=== PATIENT | male | born 1990 | race Caucasian/White ===

== ENCOUNTER 2024-06-06 18:30 | Inpatient (IN) | payer OTHER, SELFPAY ==
[2024-06-06 18:32] VITALS: BP 134/87; PULSE 109; RESP 20; TEMP 36.8; O2SAT 97; BMI 29.4
--- NOTE | 2024-06-06 20:00 | EDS_ITS ---
HPI History of Present Illness Chief Complaint: General Illness Detail of Chief Complaint: Fever, headache, jaundice Informant: patient Onset/Context/Timing Onset: Weeks Context: Gradual Onset Timing: Continuous Quality: Sharp Location: Occiput Worsened by: Nothing Relieved by: Nothing Narrative Narrative: Patient presents with fever, headache, and jaundice that has been getting worse over the past couple weeks. Patient states that over the last month he had a workup of his gout. Patient states that he has been taking Tylenol for this. Patient states he was taking up to 12 extra strength Tylenol tablets in a 24- hour period a few weeks ago. Patient states that he was started on prednisone for his gout and cut back on using the Tylenol. Patient states his last dose of Tylenol was yesterday morning. Patient's family member noticed that his skin was yellow today. Patient states he has not noticed any changes in his skin color. Patient states his temperature was up to 101.5 at home. Patient admits to a mild sore throat. Patient states he has pain over his occiput and upper neck. Patient describes it as sharp. Patient states nothing makes it worse and nothing makes it better. Patient denies any abdominal pain. Patient denies any nausea or vomiting. [facility] Medical History Gout Home Medications ?Medication ?Instructions ?Recorded ?Last Taken ?Type NK 06/06/24 Unknown History Allergy/AdvReac Type Severity Reaction Status Date / Time No Known Allergies Allergy Verified 06/06/24 18:31 Surgical History History of ankle surgery Social History Smoking Status: Current some day smoker tobacco type: cigarettes ROS ROS ED Constitutional Constitutional ED: Reports fever(s); Denies chills Eyes Eyes: Denies blurry vision or change in vision ENT ENT ED: Reports sore throat; Denies rhinorrhea Cardiovascular Cardiovascular: Denies chest pain or palpitations Respiratory/Chest Respiratory/Chest: Reports cough; Denies dyspnea Gastrointestinal Gastrointestinal: Denies nausea or vomiting Genitourinary Genitourinary ED: Denies dysuria or hematuria Musculoskeletal Musculoskeletal: Reports neck pain; Denies back pain Integumentary Reports rash; Denies abscess Neurologic Neurologic: Reports headache(s); Denies weakness Allergic/Immunologic Allergic/Immunologic ED: Denies mouth swelling or urticaria EXAM Physical Exam Const Vital Signs: 06/06/24 18:32 06/06/24 21:03 06/06/24 21:03 Temperature 98.2 F Temperature Source Oral Pulse Rate 109 H 102 H Respiratory Rate 20 H 18 Respiratory Effort Normal Respiratory Pattern Normal Blood Pressure 134/87 H 129/80 H Blood Pressure Mean 102 96 Pulse Ox 97 95 Oxygen Delivery Method Room Air Room Air 06/06/24 23:00 Temperature Temperature Source Pulse Rate 99 Respiratory Rate 17 Respiratory Effort Respiratory Pattern Blood Pressure 120/80 Blood Pressure Mean 93 Pulse Ox 99 Oxygen Delivery Method Room Air Positive well nourished and well developed General Appearance ED: well developed and NAD HEENT Reports moist mucous membranes Eyes PERRL and EOMs intact bilaterally General Eye ED: Yes scleral icterus Neck supple and no JVD Resp normal respiratory effort and clear to auscultation bilaterally Cardio regular rhythm Rate: tachycardic GI non-tender and non-distended GI Narrative: There is hepatomegaly noted. The liver margin was approximately 2 fingers below the costal margin. Palpation: soft Neuro oriented x3, CN's II-XII intact bilaterally and no sensory deficits noted Sensorium / Orientation: alert Motor Exam: strength 5/5 throughout Psych mental status grossly normal Skin General Skin Exam: jaundice MDM MDM MDM Narrative Medical decision making narrative: Differential diagnosis includes jaundice, hepatic failure, acetaminophen toxicity, electrolyte abnormality, liver mass, peptic ulcer disease, cirrhosis, coagulopathy, urinary tract infection, and viral illness. CBC will be obtained to assess for leukocytosis and anemia. Comprehensive metabolic profile will be obtained to assess for hepatic function, renal function, and electrolyte abnormality. Lipase will be obtained to assess for pancreatitis. PT with INR and PTT will be obtained to assess for coagulopathy. Acetaminophen level will be obtained to assess for acetaminophen toxicity. Serum lactate will be obtained to assess for sepsis. Urinalysis will be obtained to assess for urinary tract infection and hematuria. COVID-19, influenza, and RSV PCR will be obtained to assess for viral illness. CT scan of the abdomen and pelvis will be obtained to assess for liver mass, cirrhosis, cholecystitis, cholelithiasis, and bowel obstruction. Lab Data Attestation: I reviewed the patient's lab results. Lab results narrative: CBC was reviewed and was within normal limits. PT was INR and PTT were reviewed and were within normal limits. Comprehensive metabolic profile was reviewed. Total bilirubin was elevated at 7.60. AST was slightly elevated at 215. ALT was elevated at 389. Alkaline phosphatase was elevated at 476. Lipase was reviewed and was normal at 27. Serum lactate was reviewed and was normal at 0.9. Urinalysis was reviewed. There is no evidence of urinary tract infection or hematuria. Serum acetaminophen level was reviewed and was less than 2.0. Labs: Laboratory Results - last 24 hr 06/06/24 06/06/24 06/06/24 21:05 21:11 21:54 WBC 8.3 RBC 4.53 L Hgb 13.5 Hct 39.2 L MCV 86.5 MCH 29.8 MCHC 34.4 RDW Std Deviation 42.8 RDW Coeff of Page 13.7 Plt Count 227 MPV 8.9 Immature Gran % (Auto) 0.600 Neut % (Auto) 25.2 L Lymph % (Auto) 67.3 H [place] % (Auto) 5.0 Eos % (Auto) 0.2 Baso % (Auto) 1.7 H Absolute Neuts (auto) 2.1 Absolute Lymphs (auto) 5.57 H Nucleated RBC % 0 Differential Comment SCANNED Reactive Lymphocytes 1+ PT 12.4 INR 0.9 APTT 31.7 Sodium 134 L Potassium 4.1 Chloride 99 Carbon Dioxide 27.0 Anion Gap 8 BUN 8 Creatinine 0.81 Estim Creat Clear Calc 142.75 Est GFR (MDRD) Af Amer 140 Est GFR (MDRD) Non-Af 116 BUN/Creatinine Ratio 9.9 L Glucose 97 Lactic Acid 0.9 Calcium 8.8 Total Bilirubin 7.60 H AST 215 H ALT 389 H Alkaline Phosphatase 476 H Total Protein 7.2 Albumin 3.1 L Globulin 4.1 Albumin/Globulin Ratio 0.8 L Lipase 27 L Urine Color Yellow Urine Clarity Clear Urine pH 6.5 Ur Specific [place] 1.005 Urine Protein Negative Urine Glucose (UA) Normal Urine Ketones Negative Urine Occult Blood Negative Urine Nitrite Negative Urine Bilirubin 1 H Urine Urobilinogen 1 H Ur Leukocyte Esterase Negative Urine RBC 0 SEEN Urine WBC 0 SEEN Ur Squamous Epith Cells 0 SEEN Urine Bacteria 2+ Urine Mucus 0 SEEN Acetaminophen < 2.0 L Radiography Diagnostic Testing: Clinical Impression(s) from Imaging Studies Abdomen/Pelvis CT 06/06/24 20:16 IMPRESSION: 1. Mild pericholecystic inflammatory changes/edema concerning for acute cholecystitis. Please correlate. 2. Small wedge-shaped hypodensity within the spleen concerning for splenic infarct. 3. Mild periportal edema. Borderline hepatomegaly. One or more dose reduction techniques were used (e.g., Automated exposure control, adjustment of the mA and/or kV according to patient size, use of iterative reconstruction technique). [facility] of the abdomen and pelvis was obtained. There is mild pericholecystic inflammatory changes. There is a small wedge-shaped hypodensity in the spleen concerning for splenic infarct. There is borderline hepatomegaly. Management Discussion w/another healthcare provider: Hospitalist and Accounts Receivable Representative (Poison control) Treatment and Re-Evaluation :: Patient was given IV fluids. Patient was advised of his findings. Case was discussed with poison control. They recommended treating the patient with N- acetylcysteine with 200 mg/kg over the first 4 hours and 100 mg/kg over the next 16 hours. This was ordered. Case was discussed with the hospitalist. She will admit the patient to ICU. Patient understood and was agreeable with the plan. All questions were answered. Critical Care Time Critical care time (excluding procedures): 30-74 minutes (34), Including time spent:, Discussing w/Patient &/or Family/Artist Manager, Discussing w/Consultants, Arranging Admission or Transfer and Performing Direct Patient Care at Bedside Discharge Plan Dx/Rx/DC Orders Clinical Impression: Acetaminophen overdose, Hyperbilirubinemia, Transaminitis Disposition Disposition: Acute Care [facility]
--- NOTE | 2024-06-06 20:16 | CT_ITS ---
PROCEDURE: CT abdomen pelvis with IV contrast REASON FOR EXAM: Jaundice TECHNIQUE: Multiple contiguous axial images of the abdomen and pelvis were obtained after the administration of intravenous contrast. Two-dimensional coronal and sagittal reformatted images were reconstructed. Low-dose imaging technique was utilized. COMPARISON: None FINDINGS: Lung bases are clear. Mild periportal edema. Borderline hepatomegaly. Wedge- shaped hypodensity within the posterior aspect of the spleen measuring up to 16 mm in length concerning for infarct. Pancreas and adrenal glands are intact. Mild pericholecystic inflammatory changes/edema. No significant biliary ductal dilation. Kidneys enhance symmetrically. No suspicious renal mass, calculi or hydronephrosis. Urinary bladder is intact. No bowel obstruction, focal bowel wall thickening or significant perienteric inflammation. No pelvic free fluid. No free air. No abdominal aortic aneurysm. Several prominent periportal lymph nodes which may be reactive. No acute osseous abnormality. CT/Abdomen/Pelvis W IV Cont ONLY IMPRESSION: 1. Mild pericholecystic inflammatory changes/edema concerning for acute cholecy stitis. Please correlate. 2. Small wedge-shaped hypodensity within the spleen concerning for splenic infa rct. 3. Mild periportal edema. Borderline hepatomegaly. One or more dose reduction techniques were used (e.g., Automated exposure contr ol, adjustment of the mA and/or kV according to patient size, use of iterative reconstruction technique). Reading Location: [facility]
[2024-06-06 21:03] VITALS: BP 129/80; PULSE 102; RESP 18; O2SAT 95
[2024-06-06] MEDS: 0.9% Normal Saline (1000mL) 1,000 ML 1000 ML IV (21:05)
[2024-06-06 21:35] LABS: Partial Thromboplast Time 31.7 Seconds (24.1-36.2)
[2024-06-06 21:36] LABS: Absolute Lymphocyte Count 5.57 X10^3/uL (0.83-4.51); Absolute Neutrophil Count 2.1 X10^3/uL (2.0-7.7); Basophil# 0.14 X10^3/uL; Basophil% 1.7 % (0-1); Eosinophil# 0.02 X10^3/uL; Eosinophils% 0.2 % (0-5); Hematocrit 39.2 % (40-54); Hemoglobin 13.5 g/dL (13.0-16.5); Lymphocyte # 5.57 X10^3/ul (0.83-4.51); Lymphocyte % 67.3 % (19-41); Mean Corp Hgb Conc 34.4 g/dL (32-36); Mean Corpuscular Hgb 29.8 pg (27.0-32.0); Mean Corpuscular Volume 86.5 fL (80-94); Mean Platelet Vol. 8.9 fl (6.2-12.0); Monocyte# 0.41 X10^3/uL; NRBC Flagged by Analyzer 0 % (0-5); Neutrophil # 2.09 X10^3/uL (2.7-7.7); Neutrophil % 25.2 % (47-70); POSITIVE DIFFERENTIAL YES; POSITIVE MORPHOLOGY YES; Platelet Count 227 K/mm3 (150-450); RBC Distribution Width CV 13.7 % (11.6-14.6); RBC Distribution Width SD 42.8 fl (35.1-43.9); Red Blood Count 4.53 M/mm3 (4.6-6.2); White Blood Count 8.3 K/mm3 (4.4-11.0)
[2024-06-06 21:38] LABS: Differential Indicated SCAN CRITERIA MET; International Normalized Ratio 0.9; Prothrombin Time (Protime)PT. 12.4 SECONDS (11.7-14.9)
[2024-06-06 21:39] LABS: ALB/GLOB Ratio 0.8 RATIO (0.9-2.4); AST(SGOT) 215 U/L (15-37); Alanine Aminotransfer ALT/SGPT 389 U/L (16-61); Albumin, Serum 3.1 g/dL (3.2-5.0); Alkaline Phosphatase 476 U/L (45-117); Anion Gap 8 (5-15); BUN 8 mg/dL (7-18); BUN/Creat Ratio 9.9 RATIO (10-20); Calcium,Total 8.8 mg/dL (8.5-10.1); Chloride 99 mmol/L (98-107); Creatinine, Serum 0.81 mg/dL (0.70-1.30); EST Glomerular Filtration Rate 116 mL/min (>60); Est Glom Filt Rate - Afr Amer 140 mL/min (>60); Estimated Creatinine Clearance 142.75 ml/min; Globulin 4.1 g/dL (2.2-4.2); Glucose 97 mg/dL (74-106); Lipase 27 U/L (73-393); Potassium 4.1 mmol/L (3.5-5.1); Protein, Total 7.2 g/dL (6.4-8.2); Sodium Level 134 mmol/L (136-145)
[2024-06-06 21:53] LABS: Lactic Acid 0.9 mmol/L (0.4-1.9)
[2024-06-06 22:03] LABS: Mucous, Urine 0 SEEN /hpf (<or=2+); Squamous Epithelial Cells - UA 0 SEEN /hpf (0-5); White Blood Cells 0 SEEN /hpf (0-5)
[2024-06-06 22:05] LABS: Color, Urine Yellow (Yellow); Glucose, Dipstick Normal (Normal); Ketone-Dipstick Negative (Negative); Leukocyte Esterase-Dipstick Negative /ul (Negative); Nitrite-Dipstick Negative (Negative); Occult Blood-Urine Negative /ul (Negative); Protein-Dipstick Negative (Negative); Specific Gravity, Urine 1.005 (1.002-1.030); Urine Clarity Clear (Clear); Urine Urobilinogen 1 mg/dl (Normal); Urine pH 6.5 (5.0 - 8.0)
[2024-06-06 22:14] LABS: Differential Comment SCANNED; Reactive Lymphocyte 1+
[2024-06-06 22:22] LABS: Urine Bilirubin Dipstick 1 mg/dL (Negative)
[2024-06-06 22:28] LABS: Bacteria 2+ /hpf (None Seen)
[2024-06-06 22:29] LABS: Red Blood Cells-Urine 0 SEEN /hpf (0-5)
[2024-06-06 22:39] LABS: Acetaminophen (Tylenol) Level < 2.0 ug/mL (10.0-30.0)
[2024-06-06 23:00] VITALS: BP 120/80; PULSE 99; RESP 17; O2SAT 99
--- NOTE | 2024-06-06 23:53 | HP.PCM.HOS_ITS ---
HPI - General General Date of Admission: 06/06/24 Date of Service: 06/06/24 Chief Complaint: Scleral icterus with recent heavy tylenol use. HPI Narrative The patient is a 34 y/o M w/ PMHx: Gout, Former tobacco use who presents to the [facility] ED on 06/06/24 with history of 2 weeks of significantly worsening gout symptoms with self administration of aggressive rounds of Tylenol primarily for discomfort unfortunately up to often 6 g daily although he reports over the last 2 to 3 days he had stopped because he was finally given prednisone therapy but noticed on day of presentation that his eyes were more yellow appearing his skin sallow prompting ED evaluation to be cautious. Workup in the ED included T98.2, heart 109, BP 134/87, respiratory rate 20, 97% on room air with most recent repeat vitals heart rate 99, BP 120/80, respiratory rate 17, 99% on room air, CBC with WBC 8.3, hemoglobin 13.5, platelet 227 with lymphocytosis, unremarkable coags, CMP with sodium 134, lactic acid 0.9, hepatic profile with T. bili 7.60, AST/ALT 215/3 9, alk phos 476, lipase 27, urinalysis with urine bilirubin 1, urine urobilinogen 1 otherwise not marked appearing with no urine WBCs, RBCs, negative nitrite and negative leukocyte esterase however does report 2+ urine bacteria, Tylenol level less than 2 upon ED arrival, CT abdomen and pelvis with IV contrast with mild pericholecystic inflammatory changes/edema, small wedge-shaped hypodensity within the spleen, mild periportal edema with borderline hepatomegaly. In the ED patient administered 1 L normal saline as well as acetylcysteine initial loading dose and first dose as well as third dose ordered. ED discussed case with poison control who recommended this route. [facility] Medical History Former tobacco use Gout Home Medications ?Medication ?Instructions ?Recorded ?Last Taken ?Type NK 06/06/24 Unknown History Allergy/AdvReac Type Severity Reaction Status Date / Time No Known Allergies Allergy Verified 06/06/24 18:31 Family History Mother Hypertension Father No problems noted. Surgical History History of tonsillectomy and adenoidectomy History of hand surgery History of ankle surgery Social History (Updated 06/07/24 @ 02:[address] Alice Pope MD) household members: other details: Lives with his parents. Smoking Status: Former smoker how long ago did patient quit smoking: Quit approximately 1 year prior, 1/2 pack/day cigarette tobacco usage since alcohol intake: current alcohol intake frequency: holidays/special occasions only Alcohol type: beer substance use type: does not use ROS ROS Narrative Admission Review of Systems: CONSTITUTIONAL: No weight loss, fever, chills, + weakness or fatigue. HEENT: + Noted scleral icterus and yellow skin. Eyes: No visual loss, blurred vision, double vision. Ears, Nose, Throat: No hearing loss, sneezing, congestion, runny nose or sore throat. SKIN: No rash or itching, lesions, wounds except + yellowed skin. CARDIOVASCULAR: No chest pain, chest pressure or chest discomfort, palpitations, edema, orthopnea, syncopal events. RESPIRATORY: No shortness of breath, cough or sputum, wheezing, hemoptysis. GASTROINTESTINAL: No anorexia, nausea, vomiting or diarrhea, abdominal pain, melena, BRBPR. GENITOURINARY: No dysuria, frequency, urgency or retention. NEUROLOGICAL: No headache, dizziness, syncope, paralysis, ataxia, numbness or tingling in the extremities, focal weakness, change in bowel or bladder control, seizure. MUSCULOSKELETAL: + muscle, back pain, joint pain or stiffness. HEMATOLOGIC: No anemia, bleeding or bruising. LYMPHATICS: No enlarged nodes. No history of splenectomy. PSYCHIATRIC: No history of depression or anxiety. ENDOCRINOLOGIC: No reports of sweating, cold or heat intolerance. No polyuria or polydipsia. ALLERGIES: No history of asthma, hives, eczema or rhinitis. Vital Signs Vital Signs Vital Signs: 06/06/24 18:32 06/06/24 21:03 06/06/24 21:03 Temperature 98.2 F Temperature Source Oral Pulse Rate 109 H 102 H Respiratory Rate 20 H 18 Respiratory Effort Normal Respiratory Pattern Normal Blood Pressure 134/87 H 129/80 H Blood Pressure Mean 102 96 Pulse Ox 97 95 Oxygen Delivery Method Room Air Room Air 06/06/24 23:00 Temperature Temperature Source Pulse Rate 99 Respiratory Rate 17 Respiratory Effort Respiratory Pattern Blood Pressure 120/80 Blood Pressure Mean 93 Pulse Ox 99 Oxygen Delivery Method Room Air Weight Weight: 199 lb 1.239 oz Body Mass Index (BMI) 29.4 Physical Exam Narrative Physical Examination: General: Awake, alert, oriented x 3 and cooperative, laying in the ED bed, fatigued otherwise no acute distress. Skin: Yellow jaundice skin color, normal turgor, no cyanosis. HEENT: AT/NC, EOMI, PERRLA, scleral icterus present, MMM, no carotid bruits or JVD noted. Lungs: Mildly diminished, greater bases, proper effort, no rales, ronchi or wheezing. Heart: Mildly tachycardic with regular rhythm; no gallop, rub audible. Abdomen: Soft, overweight, NTTP, ND, mildly hyperactive BS, + HM. Extremities: No cyanosis, clubbing, or edema. Neurological: Patient awake, alert, oriented as no, cognitive function intact; pupils equally reactive to light and accommodation, cranial nerves gross normal, moving all 4 extremities, no focal deficits, strength mildly globally decreased. Psychiatric: Affect appears fatigued otherwise normal, no acute evidence of depressive or anxiety feelings. Results Lab / Micro Data 06/06/24 21:05 06/06/24 21:05 Labs: Laboratory Results - last 24 hr 06/06/24 21:05: WBC 8.3, RBC 4.53 L, Hgb 13.5, Hct 39.2 L, MCV 86.5, MCH 29.8, MCHC 34.4, RDW Std Deviation 42.8, RDW Coeff of Page 13.7, Plt Count 227, MPV 8.9, Immature Gran % (Auto) 0.600, Neut % (Auto) 25.2 L, Lymph % (Auto) 67.3 H, [place] % (Auto) 5.0, Eos % (Auto) 0.2, Baso % (Auto) 1.7 H, Absolute Neuts (auto) 2.1, Absolute Lymphs (auto) 5.57 H, Nucleated RBC % 0, Differential Comment SCANNED, Reactive Lymphocytes 1+, PT 12.4, INR 0.9, APTT 31.7, Sodium 134 L, Potassium 4.1, Chloride 99, Carbon Dioxide 27.0, Anion Gap 8, BUN 8, Creatinine 0.81, Estim Creat Clear Calc 142.75, Est GFR (MDRD) Af Amer 140, Est GFR (MDRD) Non-Af 116, BUN/Creatinine Ratio 9.9 L, Glucose 97, Calcium 8.8, Total Bilirubin 7.60 H, AST 215 H, ALT 389 H, Alkaline Phosphatase 476 H, Total Protein 7.2, A lbumin 3.1 L, Globulin 4.1, Albumin/Globulin Ratio 0.8 L, Lipase 27 L 06/06/24 21:11: Lactic Acid 0.9, Acetaminophen < 2.0 L 06/06/24 21:54: Urine Color Yellow, Urine Clarity Clear, Urine pH 6.5, Ur Specific [place] 1.005, Urine Protein Negative, Urine Glucose (UA) Normal, Urine Ketones Negative, Urine Occult Blood Negative, Urine Nitrite Negative, Urine Bilirubin 1 H, Urine Urobilinogen 1 H, Ur Leukocyte Esterase Negative, Urine RBC 0 SEEN, Urine WBC 0 SEEN, Ur Squamous Epith Cells 0 SEEN, Urine Bacteria 2+, Urine Mucus 0 SEEN Micro: Microbiology 06/06/24 21:07 Mucosa - Nose SARS-CoV-2, Influenza & RSV (PCR) - Final Imaging Radiology Impression Abdomen/Pelvis CT 06/06/24 20:16 IMPRESSION: 1. Mild pericholecystic inflammatory changes/edema concerning for acute cholecystitis. Please correlate. 2. Small wedge-shaped hypodensity within the spleen concerning for splenic infarct. 3. Mild periportal edema. Borderline hepatomegaly. One or more dose reduction techniques were used (e.g., Automated exposure control, adjustment of the mA and/or kV according to patient size, use of iterative reconstruction technique). Reading Location: [facility] Assessment & Plan Assessment/Plan (1) Acetaminophen overdose: (2) Hyperbilirubinemia: (3) Transaminitis: PLAN: Plan The patient is a 34 y/o M w/ PMHx: Gout, Former tobacco use who presents to the [facility] ED on 06/06/24 with history of 2 weeks of significantly worsening gout symptoms with self administration of aggressive rounds of Tylenol primarily for discomfort unfortunately up to often 6 g daily although he reports over the last 2 to 3 days he had stopped because he was finally given prednisone therapy but noticed on day of presentation that his eyes were more yellow appearing his skin sallow prompting ED evaluation to be cautious. #1. Accidental Tylenol overdose with significant hyperbilirubinemia, transaminitis with notable periportal inflammation/edema and borderline hepatomegaly: Patient notes aggressive Tylenol usage only but from discussions this was completely accidental with no suicidal ideations or any underlying history of anxiety and depression, denies any heavy alcohol usage or any other drug usage. Will admit to the ICU, continue acetylcysteine regimen to completion, will repeat Tylenol level in a.m., will continue to trend liver function, will involve gastroenterology to be cautious especially given patient young age, strongly educated patient on risks of accidental overdose of medications including Tylenol, ibuprofen and aspirin and he notes understanding of taking appropriate doses of agents. Given significant findings on CT gallbladder ultrasound as well as ultrasound of the spleen was requested to be cautious. Low suspicion for any type of acute cholecystitis as patient is not symptomatic with palpation and no upper right sided abdominal pain or even pain in the left upper quadrant. Suspect findings are primarily secondary to severe Tylenol liver injury. #2. Elevated BP without hypertensive diagnosis: Noted upon presentation, likely secondary to acute presentation however will continue to monitor and add oral regimen if clinically appropriate, as needed IV hydralazine in the interim. #3. Former tobacco use: Encourage continued tobacco cessation. #4. Gout: Noted previously on prednisone, suspect burst treatment has been completed but clarifying to be certain. #5. DVT prophylaxis: Encourage ambulation, activity. Charges/Coding Visit Charges Inpatient E&M: 21710 Init Hosp L3
[2024-06-07] VITALS (28 sets, daily range): BP systolic 107–146; BP diastolic 60–101; PULSE 81–112; RESP 15–27; TEMP 36.6–36.9; O2SAT 26–97; BMI 28.9; BMI 29.0
[2024-06-07] MEDS: ACETYLCYSTEINE IV ×3 (00:25→22:56)
[2024-06-07] MEDS: DEXTROSE 5% IV ×3 (00:25→22:56)
[2024-06-07] MEDS: WATER IV ×3 (00:25→22:56)
[2024-06-07] MEDS: 0.9% Normal Saline (1000mL) 1,000 ML 999 ML IV (01:00)
[2024-06-07] MEDS: 0.9% Normal Saline (1000mL) 1,000 ML 100 ML IV (01:56)
[2024-06-07 02:39] LABS: Amphetamine Urine NEGATIVE (<1000 ng/mL); Barbiturate Urine VISTA NEGATIVE (< 200 ng/mL); Benzodiazepine Urine VISTA NEGATIVE (< 200 ng/mL); Cocaine Urine VISTA NEGATIVE (< 300 ng/mL); Ecstacy Urine VISTA NEGATIVE (< 500 ng/mL); Methadone Urine VISTA NEGATIVE (< 300 ng/mL); PCP Urine VISTA NEGATIVE (< 25 ng/mL); THC Urine VISTA NEGATIVE (< 50 ng/mL); Vista UDS pH Range 6
[2024-06-07] MEDS: 0.9% Saline Lock 10 ML Syringe IV ×2 (04:25→22:55)
[2024-06-07 05:07] LABS: AST(SGOT) 166 U/L (15-37); Alanine Aminotransfer ALT/SGPT 335 U/L (16-61); Albumin, Serum 2.7 g/dL (3.2-5.0); Alkaline Phosphatase 393 U/L (45-117); Anion Gap 12 (5-15); BUN 7 mg/dL (7-18); BUN/Creat Ratio 11.1 RATIO (10-20); Bilirubin, Direct 4.68 mg/dL (0.00-0.30); Calcium,Total 8.1 mg/dL (8.5-10.1); Chloride 103 mmol/L (98-107); Creatinine, Serum 0.63 mg/dL (0.70-1.30); EST Glomerular Filtration Rate 154 mL/min (>60); Est Glom Filt Rate - Afr Amer 187 mL/min (>60); Estimated Creatinine Clearance 182.13 ml/min; Globulin 3.6 g/dL (2.2-4.2); Glucose 112 mg/dL (74-106); Potassium 3.9 mmol/L (3.5-5.1); Protein, Total 6.3 g/dL (6.4-8.2); Sodium Level 139 mmol/L (136-145)
[2024-06-07 05:25] LABS: Absolute Lymphocyte Count 4.55 X10^3/uL (0.83-4.51); Absolute Neutrophil Count 2.2 X10^3/uL (2.0-7.7); Basophil# 0.09 X10^3/uL; Basophil% 1.2 % (0-1); Eosinophil# 0.03 X10^3/uL; Eosinophils% 0.4 % (0-5); Hemoglobin 12.7 g/dL (13.0-16.5); Lymphocyte # 4.55 X10^3/ul (0.83-4.51); Lymphocyte % 62.7 % (19-41); Mean Corp Hgb Conc 35.3 g/dL (32-36); Mean Corpuscular Hgb 30.6 pg (27.0-32.0); Mean Corpuscular Volume 86.7 fL (80-94); Monocyte# 0.38 X10^3/uL; Monocyte% 5.2 % (0-10); NRBC Flagged by Analyzer 0 % (0-5); Neutrophil # 2.17 X10^3/uL (2.7-7.7); Neutrophil % 29.9 % (47-70); POSITIVE MORPHOLOGY YES; Platelet Count 215 K/mm3 (150-450); RBC Distribution Width CV 13.9 % (11.6-14.6); RBC Distribution Width SD 43.2 fl (35.1-43.9); Red Blood Count 4.15 M/mm3 (4.6-6.2); White Blood Count 7.3 K/mm3 (4.4-11.0)
--- NOTE | 2024-06-07 05:55 | US_ITS ---
PROCEDURE: ABDOMEN LIMITED REASON FOR EXAM: Abdominal pain. COMPARISON: Comparison is made with prior CT scan of the abdomen and pelvis dated June 06, 2024. FINDINGS: Liver: Diffusely echogenic suggesting fatty infiltration. The liver is enlarged measuring 20.8 cm. Gallbladder: Mild irregular thickening of the gallbladder wall suggestive of edema. Common bile duct: Normal measuring 3 mm. Pancreas: Visualized portions are sonographically unremarkable. Visualized portions of the right kidney are unremarkable. No right upper quadrant ascites. The spleen measures upper limits of normal at 13.3 cm x 5.7 cm x 5.6 cm. A small amount of fluid is seen in the Ledy splenic space. US/Abdomen Limited IMPRESSION: Mild thickening of the gallbladder wall. No evidence of gallstones. Small amount of perisplenic fluid. Hepatomegaly and diffuse fatty infiltration of the liver. Reading Location: [id number]
[2024-06-07 06:08] LABS: Acetaminophen (Tylenol) Level < 2.0 ug/mL (10.0-30.0)
[2024-06-07 06:15] LABS: Differential Indicated SCAN CRITERIA MET
[2024-06-07 06:16] LABS: Reactive Lymphocyte 2+
--- NOTE | 2024-06-07 07:45 | PCM.PN.HOSP ---
Reason for Visit Reason for Visit: Diagnoses Other disorders of bilirubin metabolism (06/06/24) Elevation of levels of liver transaminase levels (06/06/24) Poisoning by 4-Aminophenol derivatives, accidental (unintentional), initial encounter (06/06/24) Objective Data Objective Data Vital Signs: Vital Signs Temp Pulse Resp BP Pulse Ox O2 Del Method 98.3 F 108 H 24 H 124/75 H 95 Room Air 06/07/24 04:00 06/07/24 07:00 06/07/24 07:00 06/07/24 07:00 06/07/24 07:00 06/07/24 07:00 Oxygen Delivery Method Room Air Weight: 195 lb 12.328 oz Body Mass Index (BMI) 29.0 Intake & Output: Intake and Output for Last 24 Hours 06/05/24 06/06/24 06/07/24 23:59 23:59 23:59 Intake Total 2290.3 / 2290.3 Output Total 800 / 800 Balance 1490.3 / 1490.3 Lab / Micro Data 06/07/24 03:45 06/07/24 03:45 Labs: Laboratory Results - last 24 hr 06/06/24 21:05: WBC 8.3, RBC 4.53 L, Hgb 13.5, Hct 39.2 L, MCV 86.5, MCH 29.8, MCHC 34.4, RDW Std Deviation 42.8, RDW Coeff of Page 13.7, Plt Count 227, MPV 8.9, Immature Gran % (Auto) 0.600, Neut % (Auto) 25.2 L, Lymph % (Auto) 67.3 H, [place] % (Auto) 5.0, Eos % (Auto) 0.2, Baso % (Auto) 1.7 H, Absolute Neuts (auto) 2.1, Absolute Lymphs (auto) 5.57 H, Nucleated RBC % 0, Differential Comment SCANNED, Reactive Lymphocytes 1+, PT 12.4, INR 0.9, APTT 31.7, Sodium 134 L, Potassium 4.1, Chloride 99, Carbon Dioxide 27.0, Anion Gap 8, BUN 8, Creatinine 0.81, Estim Creat Clear Calc 142.75, Est GFR (MDRD) Af Amer 140, Est GFR (MDRD) Non-Af 116, BUN/Creatinine Ratio 9.9 L, Glucose 97, Calcium 8.8, Total Bilirubin 7.60 H, AST 215 H, ALT 389 H, Alkaline Phosphatase 476 H, Total Protein 7.2, Albumin 3.1 L, Globulin 4.1, Albumin/Globulin Ratio 0.8 L, Lipase 27 L 06/06/24 21:11: Lactic Acid 0.9, Acetaminophen < 2.0 L 06/06/24 21:54: Urine Color Yellow, Urine Clarity Clear, Urine pH 6.5, Ur Specific [place] 1.005, Urine Protein Negative, Urine Glucose (UA) Normal, Urine Ketones Negative, Urine Occult Blood Negative, Urine Nitrite Negative, Urine Bilirubin 1 H, Urine Urobilinogen 1 H, Ur Leukocyte Esterase Negative, Urine RBC 0 SEEN, Urine WBC 0 SEEN, Ur Squamous Epith Cells 0 SEEN, Urine Bacteria 2+, Urine Mucus 0 SEEN, Urine Opiates Screen NEGATIVE, Urine Methadone Screen NEGATIVE, Ur Barbiturates Screen NEGATIVE, Ur Phencyclidine Scrn NEGATIVE, Ur Amphetamines Screen NEGATIVE, MDMA (Ecstasy) Screen NEGATIVE, U Benzodiazepines Scrn NEGATIVE, Urine Cocaine Screen NEGATIVE, U Cannabinoids Screen NEGATIVE, Ur Drug Screen Comment 06/07/24 03:45: WBC 7.3, RBC 4.15 L, Hgb 12.7 L, Hct 36.0 L, MCV 86.7, MCH 30.6, MCHC 35.3, RDW Std Deviation 43.2, RDW Coeff of Page 13.9, Plt Count 215, MPV 9.0, Immature Gran % (Auto) 0.600, Neut % (Auto) 29.9 L, Lymph % (Auto) 62.7 H, [place] % (Auto) 5.2, Eos % (Auto) 0.4, Baso % (Auto) 1.2 H, Absolute Neuts (auto) 2.2, Absolute Lymphs (auto) 4.55 H, Nucleated RBC % 0, Reactive Lymphocytes 2+, Sodium 139, Potassium 3.9, Chloride 103, Carbon Dioxide 24.0, Anion Gap 12, BUN 7, Creatinine 0.63 L, Estim Creat Clear Calc 182.13, Est GFR (MDRD) Af Amer 187, Est GFR (MDRD) Non-Af 154, BUN/Creatinine Ratio 11.1, Glucose 112 H, Calcium 8.1 L, Total Bilirubin 6.20 H, Direct Bilirubin 4.68 H, AST 166 H, ALT 335 H, Alkaline Phosphatase 393 H, Total Protein 6.3 L, Albumin 2.7 L, Globulin 3.6, Acetaminophen < 2.0 L Micro: Microbiology 06/06/24 21:07 Mucosa - Nose SARS-CoV-2, Influenza & RSV (PCR) - Final Radiography Diagnostic Testing: Radiology Impression Abdomen/Pelvis CT 06/06/24 20:16 IMPRESSION: 1. Mild pericholecystic inflammatory changes/edema concerning for acute cholecystitis. Please correlate. 2. Small wedge-shaped hypodensity within the spleen concerning for splenic infarct. 3. Mild periportal edema. Borderline hepatomegaly. One or more dose reduction techniques were used (e.g., Automated exposure control, adjustment of the mA and/or kV according to patient size, use of iterative reconstruction technique). [facility] Physical Exam Narrative Seen and examined Patient denies abdominal pain or GI. Denies prior liver disease. Admitted with jaundice and Tylenol overdose. Physical exam General: Alert, Oriented x3, Cooperative HEENT: Icterus present atraumatic, PERRLA, EOMI, Normocephalic Oral: No Gingival or Mucosal Lesions/ Ulcerations Neck: Supple, No JVD, Negative Carotid Bruits Chest wall/Lungs: Air entry diminished in bilateral lung bases. No crepitation/rhonchi Cardiovascular: Regular rate, Regular Rhythm, Normal S1, Normal S2, No M/G/R Abdomen: Bowel Sounds Present, Soft, Non Tender, Non-Distended : No dysuria. No renal angle tenderness. No suprapubic tenderness. Extremities: No edema, Capillary Refill Less than 3 Seconds Skin: No rashes, No breakdown Musculoskeletal: No bony or muscle tenderness especially in ankle feet and toes . No Tenderness to Palpation of Joints or Extremities Neurological: Cranial nerves II-XII grossly intact, DTR 2+/4. No acute focal neurological deficit. Psych/Mental Status: Normal Affect, Appropriate. Assessment & Plan Assessment/Plan (1) Acetaminophen overdose: (2) Hyperbilirubinemia: (3) Transaminitis: PLAN: Plan The patient is a 34 y/o M who was admitted with Tylenol overdose about 6 g daily, stopped 2 to 3 days ago before coming to ER. Patient was feeling jaundice/yellow. Patient narrates a different story and states he took 6 g Tylenol every dose about a month ago and was taking 4 tablets of Tylenol daily 2 to 3 days ago #1. Accidental Tylenol overdose with direct hyperbilirubinemia and acute liver injury: Patient is being admitted as PCU status in ICU. On IV NAC drip. Elevated transaminases, alkaline phosphatase. A/G ratio 2.8. Acetaminophen level less than 2. Continue IV fluid. CT abdomen reviewed which shows mild pericholecystic edema/inflammatory changes, small mid segment hypodensity within the spleen concerning for splenic infarct and mild periportal edema. Patient denies history of blood disorder including leukemia or lymphoma. Denies prior history of DVT/PE or thromboembolism. Right upper quadrant sonogram including spleen ordered. U tox was negative. 2. Elevated BP without hypertensive diagnosis: Blood pressure is in normal range. Advised home more ambulatory BP monitoring as an outpatient in consultation with PCP #3. Chronic gout: Noted previously on prednisone, suspect burst treatment has been completed but clarifying to be certain. Patient said he had gout flareup about a month ago, does not have any active or acute joint pain. #5. DVT prophylaxis: Encourage ambulation, activity. CT abdomen/pel 1. Mild pericholecystic inflammatory changes/edema concerning for acute cholecystitis. Please correlate. 2. Small wedge-shaped hypodensity within the spleen concerning for splenic infarct. 3. Mild periportal edema. Borderline hepatomegaly. 06/06/24 21:05: WBC 8.3, RBC 4.53 L, Hgb 13.5, Hct 39.2 L, MCV 86.5, MCH 29.8, MCHC 34.4, RDW Std Deviation 42.8, RDW Coeff of Page 13.7, Plt Count 227, MPV 8.9, Immature Gran % (Auto) 0.600, Neut % (Auto) 25.2 L, Lymph % (Auto) 67.3 H, [place] % (Auto) 5.0, Eos % (Auto) 0.2, Baso % (Auto) 1.7 H, Absolute Neuts (auto) 2.1, Absolute Lymphs (auto) 5.57 H, Nucleated RBC % 0, Differential Comment SCANNED, Reactive Lymphocytes 1+, PT 12.4, INR 0.9, APTT 31.7, Sodium 134 L, Potassium 4.1, Chloride 99, Carbon Dioxide 27.0, Anion Gap 8, BUN 8, Creatinine 0.81, Estim Creat Clear Calc 142.75, Est GFR (MDRD) Af Amer 140, Est GFR (MDRD) Non-Af 116, BUN/Creatinine Ratio 9.9 L, Glucose 97, Calcium 8.8, Total Bilirubin 7.60 H, AST 215 H, ALT 389 H, Alkaline Phosphatase 476 H, Total Protein 7.2, Albumin 3.1 L, Globulin 4.1, Albumin/Globulin Ratio 0.8 L, Lipase 27 L 06/06/24 21:11: Lactic Acid 0.9, Acetaminophen < 2.0 L 06/06/24 21:54: Urine Color Yellow, Urine Clarity Clear, Urine pH 6.5, Ur Specific [place] 1.005, Urine Protein Negative, Urine Glucose (UA) Normal, Urine Ketones Negative, Urine Occult Blood Negative, Urine Nitrite Negative, Urine Bilirubin 1 H, Urine Urobilinogen 1 H, Ur Leukocyte Esterase Negative, Urine RBC 0 SEEN, Urine WBC 0 SEEN, Ur Squamous Epith Cells 0 SEEN, Urine Bacteria 2+, Urine Mucus 0 SEEN, Urine Opiates Screen NEGATIVE, Urine Methadone Screen NEGATIVE, Ur Barbiturates Screen NEGATIVE, Ur Phencyclidine Scrn NEGATIVE, Ur Amphetamines Screen NEGATIVE, MDMA (Ecstasy) Screen NEGATIVE, U Benzodiazepines Scrn NEGATIVE, Urine Cocaine Screen NEGATIVE, U Cannabinoids Screen NEGATIVE, Ur Drug Screen Comment 06/07/24 03:45: WBC 7.3, RBC 4.15 L, Hgb 12.7 L, Hct 36.0 L, MCV 86.7, MCH 30.6, MCHC 35.3, RDW Std Deviation 43.2, RDW Coeff of Page 13.9, Plt Count 215, MPV 9.0, Immature Gran % (Auto) 0.600, Neut % (Auto) 29.9 L, Lymph % (Auto) 62.7 H, [place] % (Auto) 5.2, Eos % (Auto) 0.4, Baso % (Auto) 1.2 H, Absolute Neuts (auto) 2.2, Absolute Lymphs (auto) 4.55 H, Nucleated RBC % 0, Reactive Lymphocytes 2+, Sodium 139, Potassium 3.9, Chloride 103, Carbon Dioxide 24.0, Anion Gap 12, BUN 7, Creatinine 0.63 L, Estim Creat Clear Calc 182.13, Est GFR (MDRD) Af Amer 187, Est GFR (MDRD) Non-Af 154, BUN/Creatinine Ratio 11.1, Glucose 112 H, Calcium 8.1 L, Total Bilirubin 6.20 H, Direct Bilirubin 4.68 H, AST 166 H, ALT 335 H, Alkaline Phosphatase 393 H, Total Protein 6.3 L, Albumin 2.7 L, Globulin 3.6, Acetaminophen < 2.0 L Charges/Coding Visit Charges Inpatient E&M: 50963 Subs Hosp L3
--- NOTE | 2024-06-07 11:40 | CASEMGMT ---
ROSE CALVILLO Assessment Face to Face with patient for initial transition planning/care coordination assessment. ROSE CALVILLO introduced self and role at [facility], pt voices understanding. Pt is A&Ox4 and is resting comfortably in bed and is calm. Pt mom and SO at bedside. Care providers, pharmacy, and demographics verified. Admitting dx: Accidental Tylenol OD, Acute hyperbilirubinemia LACE Strata: 1 PCP: No PCP. Provider list given. Pt states that he will get himself established Specialists: Denies. GI is currently consulted. Preferred Pharmacy: [facility] Insurance: [employer] Prescription Benefit: Yes LNOK: Jordana Smith (Mom), Concetta Alvarado (SO) Living Arrangements: Pt lives with his mother and father in a 2 story home with 3 steps to enter ADLs/IADLs: Ind Transportation: Self, SO, denies concerns DME: Denies uses or needs HHC/SNF: Denies Hx or needs Pt?s goal: Home Plan: Home, no additional needs. 6-click score is 24. Plan for the day is a Liver US and GI consult. Pt states that once he is medically ready that he feels safe returning home with his family and denies the need for OP Tx or CCN. Pt and pt family deny further questions or concerns at this time. Tom Smith RN, CM
[2024-06-07 13:56] LABS: Prothrombin Time (Protime)PT. 13.6 SECONDS (11.7-14.9)
[2024-06-07] MEDS: Ibuprofen 400 MG Tablet PO (16:27)
[2024-06-07] MEDS: Pantoprazole Sodium 40 MG Tablet PO (16:27)
--- NOTE | 2024-06-07 16:30 | ED.RN ---
poison control called to check on patient, transferred to ICU
[2024-06-07 21:45] LABS: Prothrombin Time (Protime)PT. 13.6 SECONDS (11.7-14.9)
[2024-06-07 21:52] LABS: AST(SGOT) 137 U/L (15-37); Alanine Aminotransfer ALT/SGPT 310 U/L (16-61); Albumin, Serum 2.7 g/dL (3.2-5.0); Alkaline Phosphatase 460 U/L (45-117); Bilirubin, Direct 4.08 mg/dL (0.00-0.30); Globulin 3.9 g/dL (2.2-4.2); Protein, Total 6.6 g/dL (6.4-8.2)
--- NOTE | 2024-06-07 22:05 | PCM.HOSP.N ---
Hospitalist Note Poison control is recommending an additional 3rd dose of acetylcysteine now which will be ordered.
[2024-06-08] VITALS (25 sets, daily range): BP systolic 83–134; BP diastolic 71–94; PULSE 80–107; RESP 15–27; TEMP 36.2–37.1; O2SAT 92–97; BMI 29.0
--- NOTE | 2024-06-08 06:57 | MRI_ITS ---
PROCEDURE: MRCP ABDOMEN WITHOUT CONTRAST REASON FOR EXAM: Jaundice and cholestatic hepatitis TECHNIQUE: Multiplanar, multisequence MRI of the upper abdomen without and with intravenous gadolinium-based contrast. CONTRAST: COMPARISON: None. FINDINGS: Liver: Liver is enlarged with normal hepatic signal. No hepatic mass. Normal enhancement. Biliary: The gallbladder intrahepatic ducts and common bile duct appear normal. Pancreas: No mass or ductal dilation. Spleen: Normal size, signal intensities and contrast enhancement. Adrenals: No evidence of adrenal mass. Kidneys: Normal renal sizes without mass or hydronephrosis. Peritoneum / Retroperitoneum: No ascites. Lymph Nodes: No upper abdominal lymphadenopathy. Major Vessels: The abdominal aorta and IVC are unremarkable. The portal and hepatic veins are patent. Bones: Bone marrow signal is unremarkable. MRI/MRCP Abdomen without Contrast IMPRESSION: 1. Hepatomegaly with no MR evidence of intra or extrahepatic biliary dilatatio n, cholelithiasis or choledocholithiasis Reading Location: [facility]
--- NOTE | 2024-06-08 07:14 | PN.HOSP_ITS ---
Reason for Visit Reason for Visit: Diagnoses Other disorders of bilirubin metabolism (06/06/24) Elevation of levels of liver transaminase levels (06/06/24) Poisoning by 4-Aminophenol derivatives, accidental (unintentional), initial encounter (06/06/24) Objective Data Objective Data Vital Signs: Vital Signs Temp Pulse Resp BP Pulse Ox O2 Del Method 98.0 F 93 15 125/82 H 93 Room Air 06/08/24 04:00 06/08/24 07:00 06/08/24 07:00 06/08/24 07:00 06/08/24 06:00 06/08/24 07:00 Oxygen Delivery Method Room Air Weight: 196 lb 6.91 oz Body Mass Index (BMI) 29.0 Intake & Output: Intake and Output for Last 24 Hours 06/06/24 06/07/24 06/08/24 23:59 23:59 23:59 Intake Total 4535.45 / 4535.45 500 / 500 Output Total 3950 / 3950 650 / 650 Balance 585.45 / 585.45 -150 / -150 Lab / Micro Data 06/08/24 13:50 06/08/24 11:00 Labs: Laboratory Results - last 24 hr 06/07/24 13:30: PT 13.6, INR 1.0 06/07/24 21:25: PT 13.6, INR 1.0, Total Bilirubin 5.10 H, Direct Bilirubin 4.08 H, AST 137 H, ALT 310 H, Alkaline Phosphatase 460 H, Total Protein 6.6, Albumin 2.7 L, Globulin 3.9 Micro: Microbiology 06/06/24 21:07 Mucosa - Nose SARS-CoV-2, Influenza & RSV (PCR) - Final Radiography Diagnostic Testing: Radiology Impression Abdomen Ultrasound 06/07/24 05:55 IMPRESSION: Mild thickening of the gallbladder wall. No evidence of gallstones. Small amount of perisplenic fluid. Hepatomegaly and diffuse fatty infiltration of the liver. Reading Location: [id number] Physical Exam Narrative Seen and examined No acute issues overnight. Poison control called last night and recommended 1 more drip of NAC which is ordered. Labs after the completion of NAC drip Patient denies abdominal pain or GI. Denies prior liver disease. Admitted with jaundice and Tylenol overdose. Physical exam General: Alert, Oriented x3, Cooperative HEENT: Icterus present atraumatic, PERRLA, EOMI, Normocephalic Oral: No Gingival or Mucosal Lesions/ Ulcerations Neck: Supple, No JVD, Negative Carotid Bruits Chest wall/Lungs: Air entry diminished in bilateral lung bases. No crepitation/rhonchi Cardiovascular: Regular rate, Regular Rhythm, Normal S1, Normal S2, No M/G/R Abdomen: Bowel Sounds Present, Soft, Non-Distended. Liver enlarged and palpable. Nontender : No dysuria. No renal angle tenderness. No suprapubic tenderness. Extremities: No edema, Capillary Refill Less than 3 Seconds Skin: No rashes, No breakdown Musculoskeletal: No bony or muscle tenderness especially in ankle feet and toes . ROM intact Neurological: Cranial nerves II-XII grossly intact, DTR 2+/4. No acute focal neurological deficit. Psych/Mental Status: Normal Affect, Appropriate. Assessment & Plan Assessment/Plan (1) Acetaminophen overdose: (2) Hyperbilirubinemia: (3) Transaminitis: PLAN: Plan The patient is a 34 y/o M who was admitted with Tylenol overdose about 6 g daily, stopped 2 to 3 days ago before coming to ER. Patient was feeling jaundice/yellow. Patient narrates a different story and states he took 6 g Tylenol every dose about a month ago and was taking 4 tablets of Tylenol daily 2 to 3 days ago #1. Accidental Tylenol overdose with direct hyperbilirubinemia and acute liver injury: Patient is being admitted as PCU status in ICU. On IV NAC drip. Elevated transaminases, alkaline phosphatase. A/G ratio 2.8. Acetaminophen level less than 2. Continue IV fluid. CT abdomen reviewed which shows mild pericholecystic edema/inflammatory changes, small mid segment hypodensity within the spleen concerning for splenic infarct and mild periportal edema. Patient denies history of blood disorder including leukemia or lymphoma. Denies prior history of DVT/PE or thromboembolism. Right upper quadrant sonogram including spleen ordered. U tox was negative. 06/08: Liver ultrasound shows enlarged liver 20.8 cm, diffusely echogenic. CBD 3 mm. GB mild irregular thickening of GB wall suggestive of edema. Pancreas not visualized. Spleen upper limit of normal, 13.3 cm small amount of fluid around perisplenic space. Follow-up labs shows INR 1.0. Electrolytes in normal range. Improvement in TB, DB, transaminases. Alkaline phosphatase still elevated 2. Elevated BP without hypertensive diagnosis: Blood pressure is in normal range. Advised home more ambulatory BP monitoring as an outpatient in consultation with PCP #3. Chronic gout: Noted previously on prednisone, suspect burst treatment has been completed but clarifying to be certain. Patient said he had gout flareup about a month ago, does not have any active or acute joint pain. #5. DVT prophylaxis: Encourage ambulation, activity. CT abdomen/pel 1. Mild pericholecystic inflammatory changes/edema concerning for acute cholecystitis. Please correlate. 2. Small wedge-shaped hypodensity within the spleen concerning for splenic infarct. 3. Mild periportal edema. Borderline hepatomegaly. 06/06/24 21:05: BUN/Creatinine Ratio 9.9 L, Glucose 97, Calcium 8.8, Total Bilirubin 7.60 H, AST 215 H, ALT 389 H, Alkaline Phosphatase 476 H, Total Protein 7.2, Albumin 3.1 L, Globulin 4.1, Albumin/Globulin Ratio 0.8 L, Lipase 27 L 06/06/24 21:11: Lactic Acid 0.9, Acetaminophen < 2.0 L 06/06/24 21:54: Urine Color Yellow, Urine Clarity Clear, Urine pH 6.5, Ur Specific [place] 1.005, Urine Protein Negative, Urine Glucose (UA) Normal, Urine Ketones Negative, Urine Occult Blood Negative, Urine Nitrite Negative, Urine Bilirubin 1 H, Urine Urobilinogen 1 H, Ur Leukocyte Esterase Negative, Urine RBC 0 SEEN, Urine WBC 0 SEEN, Ur Squamous Epith Cells 0 SEEN, Urine Bacteria 2+, Urine Mucus 0 SEEN, Urine Opiates Screen NEGATIVE, Urine Methadone Screen NEGATIVE, Ur Barbiturates Screen NEGATIVE, Ur Phencyclidine Scrn NEGATIVE, Ur Amphetamines Screen NEGATIVE, MDMA (Ecstasy) Screen NEGATIVE, U Benzodiazepines Scrn NEGATIVE, Urine Cocaine Screen NEGATIVE, U Cannabinoids Screen NEGATIVE, Ur Drug Screen Comment 06/07/24 03:45: WBC 7.3, RBC 4.15 L, Hgb 12.7 L, Hct 36.0 L, MCV 86.7, MCH 30.6, MCHC 35.3, RDW Std Deviation 43.2, RDW Coeff of Page 13.9, Plt Count 215, MPV 9.0, Immature Gran % (Auto) 0.600, Neut % (Auto) 29.9 L, Lymph % (Auto) 62.7 H, [place] % (Auto) 5.2, Eos % (Auto) 0.4, Baso % (Auto) 1.2 H, Absolute Neuts (auto) 2.2, Absolute Lymphs (auto) 4.55 H, Nucleated RBC % 0, Reactive Lymphocytes 2+, Sodium 139, Potassium 3.9, Chloride 103, Carbon Dioxide 24.0, Anion Gap 12, BUN 7, Creatinine 0.63 L, Estim Creat Clear Calc 182.13, Est GFR (MDRD) Af Amer 187, Est GFR (MDRD) Non-Af 154, BUN/Creatinine Ratio 11.1, Glucose 112 H, Calcium 8.1 L, Total Bilirubin 6.20 H, Direct Bilirubin 4.68 H, AST 166 H, ALT 335 H, A lkaline Phosphatase 393 H, Total Protein 6.3 L, Albumin 2.7 L, Globulin 3.6, A cetaminophen < 2.0 L Microbiology Past 72 Hours 06/06/24 21:07 Mucosa - Nose SARS-CoV-2, Influenza & RSV (PCR) - Final Laboratory Results 06/07/24 21:25: PT 13.6, INR 1.0, Total Bilirubin 5.10 H, Direct Bilirubin 4.08 H, AST 137 H, ALT 310 H, Alkaline Phosphatase 460 H, Total Protein 6.6, Albumin 2.7 L, Globulin 3.9 06/08/24 11:00: PT 13.1, INR 1.0, APTT 30.2, Sodium 136, Potassium 4.5, Chloride 104, Carbon Dioxide 27.0, Anion Gap 5, BUN 7, Creatinine 0.78, Estim Creat Clear Calc 147.34, Est GFR (MDRD) Af Amer 147, Est GFR (MDRD) Non-Af 122, B UN/Creatinine Ratio 9.0 L, Glucose 97, Calcium 9.0, Total Bilirubin 4.00 H, AST 132 H, ALT 317 H, Alkaline Phosphatase 533 H, Total Protein 7.1, Albumin 2.8 L, Globulin 4.3 H, Albumin/Globulin Ratio 0.7 L 06/08/24 13:50: WBC 7.4, RBC 4.17 L, Hgb 13.5, Hct 38.4 L, MCV 92.1 D, MCH 32.4 H, MCHC 35.2, RDW Std Deviation 45.8 H, RDW Coeff of Page 15.6 H, Plt Count 254, MPV 8.5, Immature Gran % (Auto) 0.700, Neut % (Auto) 29.3 L, Lymph % (Auto) 62.1 H, [place] % (Auto) 5.2, Eos % (Auto) 1.6, Baso % (Auto) 1.1 H, Absolute Neuts (auto) 2.2, Absolute Lymphs (auto) 4.62 H, Nucleated RBC % 0, PT 13.1, INR 1.0, Sodium 136, Potassium 4.2, Chloride 102, Carbon Dioxide 28.0, Anion Gap 6, BUN 8, Creatinine 0.78, Estim Creat Clear Calc 147.34, Est GFR (MDRD) Af Amer 146, Est GFR (MDRD) Non-Af 121, BUN/Creatinine Ratio 10.3, Glucose 139 H, Calcium 9.0, Total Bilirubin 3.90 H 06/08/24 13:50: Total Bilirubin 3.80 H, Direct Bilirubin 2.94 H 06/08/24 13:50: Direct Bilirubin 2.91 H, GGT Pending, AST 119 H 06/08/24 13:50: AST 126 H, ALT 306 H 06/08/24 13:50: ALT 304 H, Alkaline Phosphatase 504 H 06/08/24 13:50: Alkaline Phosphatase 521 H, Total Protein 7.1 06/08/24 13:50: Total Protein 6.9, Albumin 2.8 L 06/08/24 13:50: Albumin 2.8 L, Globulin 4.3 H 06/08/24 13:50: Globulin 4.1, Albumin/Globulin Ratio 0.7 L Charges/Coding Visit Charges Inpatient E&M: 25057 Subs Hosp L2
[2024-06-08] MEDS: Pantoprazole Sodium 40 MG Tablet PO (07:53)
--- NOTE | 2024-06-08 08:55 | EX.PCM.CON.G ---
HPI Consult Data Date of Consult: 06/08/24 HPI Narrative Reason for Consultation: Acute liver failure HPI Narrative: 34 y/o M w/ PMHx: Newly diagnosed gout treated with prednisone therapy, who presented to the [facility] ED on 06/06/24 with an almost 1 month of significantly worsening gout symptoms in his right big toe. He is taking a lot of Tylenol and some ibuprofen for his pain. He was also given a short course of prednisone for previously diagnosed gout. He presented to the ER because on day of presentation his eyes were more yellow appearing his skin sallow prompting ED evaluation to be cautious. Workup in the ED included T98.2, heart 109, BP 134/87, respiratory rate 20, 97% on room air with most recent repeat vitals heart rate 99, BP 120/80, respiratory rate 17, 99% on room air, CBC with WBC 8.3, hemoglobin 13.5, platelet 227 with lymphocytosis INR is 1.0 CMP with sodium 134, lactic acid 0.9, Hepatic profile- T. bili 7.60, AST/ALT 215/3 9, alk phos 476, lipase 27, urinalysis with urine bilirubin 1, urine urobilinogen 1 otherwise not marked appearing with no urine WBCs, RBCs, negative nitrite and negative leukocyte esterase however does report 2+ urine bacteria Tylenol level less than [address] abdomen and pelvis with IV contrast with mild pericholecystic inflammatory changes/edema, small wedge-shaped hypodensity within the spleen, mild periportal edema with borderline hepatomegaly. I was asked to see him in regards of acute liver failure. He had already been started on Mucomyst after talking to poison control. [facility] Medical History Former tobacco use Gout Home Medications ?Medication ?Instructions ?Recorded ?Last Taken ?Type NK 06/06/24 Unknown History Allergy/AdvReac Type Severity Reaction Status Date / Time No Known Allergies Allergy Verified 06/06/24 18:31 Family History Mother Hypertension Father No problems noted. Surgical History History of tonsillectomy and adenoidectomy History of hand surgery History of ankle surgery Social History (Updated 06/07/24 @ 02:[address] Alice Pope MD) household members: other details: Lives with his parents. Smoking Status: Former smoker how long ago did patient quit smoking: Quit approximately 1 year prior, 1/2 pack/day cigarette tobacco usage since alcohol intake: current alcohol intake frequency: holidays/special occasions only Alcohol type: beer substance use type: does not use ROS Constitutional Constitutional: Denies fatigue, fever(s), poor appetite, weight gain or weight loss Gastrointestinal Gastrointestinal: Denies belching, bloating, change in bowel habits, change in stool character, chewing difficulty, coffee ground emesis, constipation, cramping, diarrhea, dyspepsia, dysphagia, early satiety, excessive flatus, fecal incontinence, heartburn, hematemesis, hematochezia, hemorrhoids, loose stools, melena, nausea, odynophagia, rectal bleeding, tenesmus, vomiting or weight changes Physical Exam Const alert, oriented x3, no apparent distress and healthy appearing General Appearance: cooperative GI normal to inspection, nondistended, normoactive bowel sounds, soft to palpation, non-tender and non-distended Percussion: normal to percussion Rectal Exam: deferred Lab / Micro Data 06/07/24 03:45 06/08/24 11:00 Labs: Laboratory Results - last 24 hr 06/07/24 13:30: PT 13.6, INR 1.0 06/07/24 21:25: PT 13.6, INR 1.0, Total Bilirubin 5.10 H, Direct Bilirubin 4.08 H, AST 137 H, ALT 310 H, Alkaline Phosphatase 460 H, Total Protein 6.6, Albumin 2.7 L, Globulin 3.9 Imaging Radiology Impression Abdomen Ultrasound 06/07/24 05:55 IMPRESSION: Mild thickening of the gallbladder wall. No evidence of gallstones. Small amount of perisplenic fluid. Hepatomegaly and diffuse fatty infiltration of the liver. Reading Location: [id number] Assessment & Plan Assessment/Plan (1) Acetaminophen overdose: (2) Hyperbilirubinemia: (3) Transaminitis: PLAN: Plan The patient is a 34 y/o M w/ PMHx: Gout, Former tobacco use who presents to the [facility] ED on 06/06/24 with history of 3 weeks of significantly worsening gout symptoms with self administration of aggressive rounds of Tylenol primarily for discomfort. He is currently in the ICU for acute liver failure secondary to suspected Tylenol overdose. Acute liver failure ([facility]) is an uncommon, but dramatic, clinical syndrome defined by the onset of coagulopathy (INR > 1.5), and mental status changes within 8 to 26 weeks of presentation . The etiology of [facility] is usually rapidly established by patient history, laboratory tests, and imaging studies, but the etiology remains unknown in up to 20% of cases . Acetaminophen overdose is the most common cause of [facility] in Western countries and its incidence appears to be increasing. Fortunately, most acetaminophen overdose patients recover with early N-acetylcysteine (NAC) therapy and supportive care. He was given 3 doses of N-acetylcysteine. Initially he was given as per poison control. He does not drink any alcohol. He did not take any herbal medicines other medicines except for his medicines he was taking prior to coming into the hospital. He had no pre-existing history of liver disease. He has no family history liver disease. He has no autoimmune disease that he knows of. He also denies of any nausea, vomiting or general malaise. His INR has not really increased and he has not decreased his platelet count. His acetaminophen level has always been less than 2. By his nomogram his level was less than 2. His pH does not seem to be affected as he does not have a significant metabolic acidosis along his BMP. He already received IV N-acetylcysteine and did not receive oral acetylcysteine. His [employer] criteria for transplantation eval for very low. Ordered an MRCP after reviewing his CAT scan showing any signs of obstructive disease, lesions, cirrhosis or hemodynamic instability. Recommendations: -Depending on MRCP he may need liver biopsy -Repeat LFTs, liver enzymes, LDH, protein electrophoresis and PT and PTT The patient has very low risk for progressive hepatocellular injury. I think he desponded very well to medical therapy Charges/Coding Visit Charges Inpatient E&M: 37918 Init Hosp L3
[2024-06-08 11:22] LABS: Prothrombin Time (Protime)PT. 13.1 SECONDS (11.7-14.9)
[2024-06-08 11:23] LABS: Partial Thromboplast Time 30.2 Seconds (24.1-36.2)
[2024-06-08 11:31] LABS: ALB/GLOB Ratio 0.7 RATIO (0.9-2.4); AST(SGOT) 132 U/L (15-37); Alanine Aminotransfer ALT/SGPT 317 U/L (16-61); Albumin, Serum 2.8 g/dL (3.2-5.0); Alkaline Phosphatase 533 U/L (45-117); Anion Gap 5 (5-15); BUN 7 mg/dL (7-18); Chloride 104 mmol/L (98-107); Creatinine, Serum 0.78 mg/dL (0.70-1.30); EST Glomerular Filtration Rate 122 mL/min (>60); Est Glom Filt Rate - Afr Amer 147 mL/min (>60); Estimated Creatinine Clearance 147.34 ml/min; Globulin 4.3 g/dL (2.2-4.2); Glucose 97 mg/dL (74-106); Potassium 4.5 mmol/L (3.5-5.1); Protein, Total 7.1 g/dL (6.4-8.2); Sodium Level 136 mmol/L (136-145)
[2024-06-08 14:09] LABS: Absolute Lymphocyte Count 4.62 X10^3/uL (0.83-4.51); Absolute Neutrophil Count 2.2 X10^3/uL (2.0-7.7); Basophil# 0.08 X10^3/uL; Basophil% 1.1 % (0-1); Eosinophil# 0.12 X10^3/uL; Eosinophils% 1.6 % (0-5); Hematocrit 38.4 % (40-54); Hemoglobin 13.5 g/dL (13.0-16.5); Lymphocyte # 4.62 X10^3/ul (0.83-4.51); Lymphocyte % 62.1 % (19-41); Mean Corp Hgb Conc 35.2 g/dL (32-36); Mean Corpuscular Hgb 32.4 pg (27.0-32.0); Mean Corpuscular Volume 92.1 fL (80-94); Mean Platelet Vol. 8.5 fl (6.2-12.0); Monocyte# 0.39 X10^3/uL; Monocyte% 5.2 % (0-10); NRBC Flagged by Analyzer 0 % (0-5); Neutrophil # 2.18 X10^3/uL (2.7-7.7); Neutrophil % 29.3 % (47-70); POSITIVE MORPHOLOGY YES; Platelet Count 254 K/mm3 (150-450); RBC Distribution Width CV 15.6 % (11.6-14.6); RBC Distribution Width SD 45.8 fl (35.1-43.9); Red Blood Count 4.17 M/mm3 (4.6-6.2); White Blood Count 7.4 K/mm3 (4.4-11.0)
[2024-06-08 14:14] LABS: Differential Indicated SCAN CRITERIA MET
[2024-06-08 14:31] LABS: ALB/GLOB Ratio 0.7 RATIO (0.9-2.4); AST(SGOT) 119 U/L (15-37); Alanine Aminotransfer ALT/SGPT 306 U/L (16-61); Albumin, Serum 2.8 g/dL (3.2-5.0); Alkaline Phosphatase 504 U/L (45-117); Anion Gap 6 (5-15); BUN 8 mg/dL (7-18); BUN/Creat Ratio 10.3 RATIO (10-20); Bilirubin, Direct 2.94 mg/dL (0.00-0.30); Chloride 102 mmol/L (98-107); Creatinine, Serum 0.78 mg/dL (0.70-1.30); EST Glomerular Filtration Rate 121 mL/min (>60); Est Glom Filt Rate - Afr Amer 146 mL/min (>60); Estimated Creatinine Clearance 147.34 ml/min; Globulin 4.3 g/dL (2.2-4.2); Glucose 139 mg/dL (74-106); Potassium 4.2 mmol/L (3.5-5.1); Protein, Total 7.1 g/dL (6.4-8.2); Sodium Level 136 mmol/L (136-145)
[2024-06-08 14:33] LABS: Prothrombin Time (Protime)PT. 13.1 SECONDS (11.7-14.9)
[2024-06-08 14:34] LABS: AST(SGOT) 126 U/L (15-37); Alanine Aminotransfer ALT/SGPT 304 U/L (16-61); Albumin, Serum 2.8 g/dL (3.2-5.0); Alkaline Phosphatase 521 U/L (45-117); Bilirubin, Direct 2.91 mg/dL (0.00-0.30); Globulin 4.1 g/dL (2.2-4.2); Protein, Total 6.9 g/dL (6.4-8.2)
[2024-06-08 16:02] LABS: Anisocytosis RARE; Atypical Lymphocyte 2+ %; Macrocytosis RARE; Platelet Estimate ADEQUATE (ADEQ); Red Cell Morphology N CHROM NORMAL (NORM C&C)
[2024-06-08] MEDS: ACETYLCYSTEINE IV (18:25)
[2024-06-08] MEDS: WATER IV (18:25)
[2024-06-08] MEDS: DEXTROSE 5% IV (18:25)
[2024-06-08 19:29] LABS: Erythrocyte Sedimentation Rate 9 mm/hr (0-20)
[2024-06-08 20:03] LABS: CPK Total, Creatine Kinase 37 U/L (39-308); Ferritin 2573 ng/mL (26-388); Iron 71 ug/dL (65-175); Iron Binding Capacity,Total 290 ug/dL (250-450); LDH 541 U/L (87-241); PERCENT IRON SATURATION 24.5 % (15.0-55.0); Uric Acid 3.8 mg/dL (3.5-7.2)
[2024-06-08 20:48] LABS: Ammonia < 10.0 umol/L (11-32)
[2024-06-09] VITALS (16 sets, daily range): BP systolic 100–139; BP diastolic 65–92; PULSE 85–110; RESP 16–24; TEMP 36.6–37.1; O2SAT 92–97; BMI 28.9
--- NOTE | 2024-06-09 07:29 | PN.HOSP_ITS ---
Reason for Visit Reason for Visit: Diagnoses Other disorders of bilirubin metabolism (06/06/24) Elevation of levels of liver transaminase levels (06/06/24) Poisoning by 4-Aminophenol derivatives, accidental (unintentional), initial encounter (06/06/24) Objective Data Objective Data Vital Signs: Vital Signs Temp Pulse Resp BP Pulse Ox O2 Del Method 97.8 F 89 18 132/83 H 95 Room Air 06/09/24 07:00 06/09/24 07:00 06/09/24 07:00 06/09/24 07:00 06/09/24 07:00 06/09/24 07:00 Oxygen Delivery Method Room Air Weight: 195 lb 5.273 oz Body Mass Index (BMI) 28.9 Intake & Output: Intake and Output for Last 24 Hours 06/07/24 06/08/24 06/09/24 23:59 23:59 23:59 Intake Total 4535.45 / 4535.45 2855.15 / 2855.15 1162.5 / 1162.5 Output Total 3950 / 3950 3650 / 4050 800 / 800 Balance 585.45 / 585.45 -794.85 / -1194.85 362.5 / 362.5 Lab / Micro Data 06/08/24 13:50 06/09/24 08:30 Labs: Laboratory Results - last 24 hr 06/08/24 11:00: PT 13.1, INR 1.0, APTT 30.2, Sodium 136, Potassium 4.5, Chloride 104, Carbon Dioxide 27.0, Anion Gap 5, BUN 7, Creatinine 0.78, Estim Creat Clear Calc 147.34, Est GFR (MDRD) Af Amer 147, Est GFR (MDRD) Non-Af 122, B UN/Creatinine Ratio 9.0 L, Glucose 97, Uric Acid 3.8, Calcium 9.0, Iron 71, TIBC 290, Iron Saturation 24.5, Ferritin 2573 H, Total Bilirubin 4.00 H, AST 132 H, A LT 317 H, Alkaline Phosphatase 533 H, Lactate Dehydrogenase 541 H, Total Creatine Kinase 37 L, C-React Prot Ext Range 22.10 H, Total Protein 7.1, Albumin 2.8 L, Globulin 4.3 H, Albumin/Globulin Ratio 0.7 L 06/08/24 13:50: WBC 7.4, RBC 4.17 L, Hgb 13.5, Hct 38.4 L, MCV 92.1 D, MCH 32.4 H, MCHC 35.2, RDW Std Deviation 45.8 H, RDW Coeff of Page 15.6 H, Plt Count 254, MPV 8.5, Immature Gran % (Auto) 0.700, Neut % (Auto) 29.3 L, Lymph % (Auto) 62.1 H, [place]lin % (Auto) 5.2, Eos % (Auto) 1.6, Baso % (Auto) 1.1 H, Absolute Neuts (auto) 2.2, Absolute Lymphs (auto) 4.62 H, Nucleated RBC % 0, Atypical Lymphocytes 2+, Platelet Estimate ADEQUATE, RBC Morphology N CHROM, Anisocytosis RARE, Macrocytosis RARE, ESR 9, PT 13.1, INR 1.0, Sodium 136, Potassium 4.2, Chloride 102, Carbon Dioxide 28.0, Anion Gap 6, BUN 8, Creatinine 0.78, Estim Creat Clear Calc 147.34, Est GFR (MDRD) Af Amer 146, Est GFR (MDRD) Non-Af 121, BUN/Creatinine Ratio 10.3, Glucose 139 H, Calcium 9.0, Total Bilirubin 3.90 H 06/08/24 13:50: Total Bilirubin 3.80 H, Direct Bilirubin 2.94 H 06/08/24 13:50: Direct Bilirubin 2.91 H, AST 119 H 06/08/24 13:50: AST 126 H, ALT 306 H 06/08/24 13:50: ALT 304 H, Alkaline Phosphatase 504 H 06/08/24 13:50: Alkaline Phosphatase 521 H, Total Protein 7.1 06/08/24 13:50: Total Protein 6.9, Albumin 2.8 L 06/08/24 13:50: Albumin 2.8 L, Globulin 4.3 H 06/08/24 13:50: Globulin 4.1, Albumin/Globulin Ratio 0.7 L 06/08/24 19:46: Ammonia < 10.0 L 06/08/24 20:00: Miscellaneous Test Cancelled 06/08/24 20:00: Miscellaneous Test Cancelled Micro: Microbiology 06/06/24 21:07 Mucosa - Nose SARS-CoV-2, Influenza & RSV (PCR) - Final Physical Exam Narrative Seen and examined No acute issues overnight. Poison control called last night and recommended 1 more drip of NAC which is ordered. Labs after the completion of NAC drip Patient denies abdominal pain or GI. Denies prior liver disease. Admitted with jaundice and Tylenol overdose. Physical exam General: Alert, Oriented x3, Cooperative HEENT: Icterus present atraumatic, PERRLA, EOMI, Normocephalic Oral: No Gingival or Mucosal Lesions/ Ulcerations Neck: Supple, No JVD, Negative Carotid Bruits Chest wall/Lungs: Air entry diminished in bilateral lung bases. No crepitation/rhonchi Cardiovascular: Regular rate, Regular Rhythm, Normal S1, Normal S2, No M/G/R Abdomen: Bowel Sounds Present, Soft, Non-Distended. Liver enlarged and palpable. Nontender : No dysuria. No renal angle tenderness. No suprapubic tenderness. Extremities: No edema, Capillary Refill Less than 3 Seconds Skin: No rashes, No breakdown Musculoskeletal: No bony or muscle tenderness especially in ankle feet and toes . ROM intact Neurological: Cranial nerves II-XII grossly intact, DTR 2+/4. No acute focal neurological deficit. Psych/Mental Status: Normal Affect, Appropriate. Assessment & Plan Assessment/Plan (1) Acetaminophen overdose: (2) Hyperbilirubinemia: (3) Transaminitis: PLAN: Plan The patient is a 34 y/o M who was admitted with Tylenol overdose about 6 g daily, stopped 2 to 3 days ago before coming to ER. Patient was feeling jaundice/yellow. Patient narrates a different story and states he took 6 g Tylenol every dose about a month ago and was taking 4 tablets of Tylenol daily 2 to 3 days ago #1. Accidental Tylenol overdose with direct hyperbilirubinemia and acute liver injury with possibility of other etiologies including viral hepatitis, autoimmune disease or DILI: Patient is being admitted as PCU status in ICU. On IV NAC drip. Elevated transaminases, alkaline phosphatase. A/G ratio 2.8. Acetaminophen level less than 2. Continue IV fluid. CT abdomen reviewed which shows mild pericholecystic edema/inflammatory changes, small mid segment hypodensity within the spleen concerning for splenic infarct and mild periportal edema. Patient denies history of blood disorder including leukemia or lymphoma. Denies prior history of DVT/PE or thromboembolism. Right upper quadrant sonogram including spleen ordered. U tox was negative. 06/08: Liver ultrasound shows enlarged liver 20.8 cm, diffusely echogenic. CBD 3 mm. GB mild irregular thickening of GB wall suggestive of edema. Pancreas not visualized. Spleen upper limit of normal, 13.3 cm small amount of fluid around perisplenic space. Follow-up labs shows INR 1.0. Electrolytes in normal range. Improvement in TB, DB, transaminases. Alkaline phosphatase still elevated 06/09: Patient was seen by truck engine assembler. MRCP is ordered. Tylenol over the almost a month ago therefore should consider other differential including infectious viral hepatitis, autoimmune disease or DILI or idiosyncratic reaction. Total bilirubin, direct bilirubin, AST ALT are improving. 2. Elevated BP without hypertensive diagnosis: Blood pressure is in normal range. Advised home more ambulatory BP monitoring as an outpatient in consultation with PCP #3. Chronic gout: Noted previously on prednisone, suspect burst treatment has been completed but clarifying to be certain. Patient said he had gout flareup about a month ago, does not have any active or acute joint pain. #5. DVT prophylaxis: Encourage ambulation, activity. CT abdomen/pel 1. Mild pericholecystic inflammatory changes/edema concerning for acute cholecystitis. Please correlate. 2. Small wedge-shaped hypodensity within the spleen concerning for splenic infarct. 3. Mild periportal edema. Borderline hepatomegaly. Microbiology Past 72 Hours 06/06/24 21:07 Mucosa - Nose SARS-CoV-2, Influenza & RSV (PCR) - Final Laboratory Results 06/08/24 11:00: Uric Acid 3.8, Iron 71, TIBC 290, Iron Saturation 24.5, Ferritin 2573 H, Lactate Dehydrogenase 541 H, Total Creatine Kinase 37 L, C-React Prot Ext Range 22.10 H 06/08/24 13:50: Atypical Lymphocytes 2+, Platelet Estimate ADEQUATE, RBC Morphology N CHROM, Anisocytosis RARE, Macrocytosis RARE, ESR 9, PT 13.1, INR 1.0, Sodium 136, Potassium 4.2, Chloride 102, Carbon Dioxide 28.0, Anion Gap 6, BUN 8, Creatinine 0.78, Estim Creat Clear Calc 147.34, Est GFR (MDRD) Af Amer 146, Est GFR (MDRD) Non-Af 121, BUN/Creatinine Ratio 10.3, Glucose 139 H, Calcium 9.0, Total Bilirubin 3.90 H 06/08/24 13:50: Total Bilirubin 3.80 H, Direct Bilirubin 2.94 H 06/08/24 13:50: Direct Bilirubin 2.91 H, AST 119 H 06/08/24 13:50: AST 126 H, ALT 306 H 06/08/24 13:50: ALT 304 H, Alkaline Phosphatase 504 H 06/08/24 13:50: Alkaline Phosphatase 521 H, Total Protein 7.1 06/08/24 13:50: Total Protein 6.9, Albumin 2.8 L 06/08/24 13:50: Albumin 2.8 L, Globulin 4.3 H 06/08/24 13:50: Globulin 4.1, Albumin/Globulin Ratio 0.7 L 06/08/24 19:46: Ammonia < 10.0 L, Total Protein (PEP) Pending, Ceruloplasmin Pending, Aldolase Pending, Serum Copper Pending, IgG Pending 06/08/24 19:46: IgG Pending, IgG Total Pending, IgG1 Pending, IgG2 Pending, IgG3 Pending, IgG4 Pending, IgA Pending 06/08/24 19:46: IgA Pending, IgM Pending 06/08/24 19:46: IgM Pending, IgE Pending, Albumin (SAMANTHA) Pending, Albumin/Globulin (SAMANTHA) Pending, Jjhzb-[id number] SAMANTHA Pending, Jmmgl-2-Dmxsfbqxw SAMANTHA Pending, Beta-Globulins (SAMANTHA) Pending, Gamma Globulins (SAMANTHA) Pending, SAMANTHA M- Ashish Pending, Anti-Smooth Muscle Ab Pending, CMV IgM Ab Pending, EBV Capsid Ag IgG Ab Pending, EBV Capsid Ag IgM Ab Pending, EBV Nuclear Ag IgG Ab Pending, EBV Antibody Interp Pending, Hepatitis A IgM Ab Pending, Hep Bs Antigen Pending, Hep B Core IgM Ab Pending, Hepatitis C Ab (EIA) Pending, Mycoplasma pneumon IgG Pending, Mycoplasma pneumon IgM Pending, Miscellaneous Test Cancelled 06/09/24 08:30: PT 13.2, INR 1.0, Sodium 137, Potassium 3.9, Chloride 103, Carbon Dioxide 27.0, Anion Gap 7, BUN 7, Creatinine 0.58 L, Estim Creat Clear Calc 197.63, Est GFR (MDRD) Af Amer 204, Est GFR (MDRD) Non-Af 169, BUN/Creatinine Ratio 12.0, Glucose 106, Calcium 8.7, Total Bilirubin 2.70 H, D irect Bilirubin 1.84 H, AST 92 H, ALT 264 H, Alkaline Phosphatase 507 H, Total Protein 6.9, Albumin 2.8 L, Globulin 4.1, Albumin/Globulin Ratio 0.7 L Charges/Coding Visit Charges Inpatient E&M: 97692 Subs Hosp L2
[2024-06-09 09:05] LABS: ALB/GLOB Ratio 0.7 RATIO (0.9-2.4); AST(SGOT) 92 U/L (15-37); Alanine Aminotransfer ALT/SGPT 264 U/L (16-61); Albumin, Serum 2.8 g/dL (3.2-5.0); Alkaline Phosphatase 507 U/L (45-117); Anion Gap 7 (5-15); BUN 7 mg/dL (7-18); Bilirubin, Direct 1.84 mg/dL (0.00-0.30); Calcium,Total 8.7 mg/dL (8.5-10.1); Chloride 103 mmol/L (98-107); Creatinine, Serum 0.58 mg/dL (0.70-1.30); EST Glomerular Filtration Rate 169 mL/min (>60); Est Glom Filt Rate - Afr Amer 204 mL/min (>60); Estimated Creatinine Clearance 197.63 ml/min; Globulin 4.1 g/dL (2.2-4.2); Glucose 106 mg/dL (74-106); Potassium 3.9 mmol/L (3.5-5.1); Protein, Total 6.9 g/dL (6.4-8.2); Sodium Level 137 mmol/L (136-145)
[2024-06-09 09:16] LABS: Prothrombin Time (Protime)PT. 13.2 SECONDS (11.7-14.9)
[2024-06-09] MEDS: Pantoprazole Sodium 40 MG Tablet PO (10:16)
[2024-06-09 15:22] LABS: Absolute Lymphocyte Count 4.46 X10^3/uL (0.83-4.51); Absolute Neutrophil Count 2.4 X10^3/uL (2.0-7.7); Basophil# 0.13 X10^3/uL; Basophil% 1.7 % (0-1); Differential Indicated SCAN CRITERIA MET; Eosinophil# 0.08 X10^3/uL; Hematocrit 40.5 % (40-54); Hemoglobin 13.8 g/dL (13.0-16.5); Lymphocyte # 4.46 X10^3/ul (0.83-4.51); Lymphocyte % 58.5 % (19-41); Mean Corp Hgb Conc 34.1 g/dL (32-36); Mean Corpuscular Hgb 29.9 pg (27.0-32.0); Mean Corpuscular Volume 87.7 fL (80-94); Mean Platelet Vol. 9.7 fl (6.2-12.0); Monocyte% 6.6 % (0-10); NRBC Flagged by Analyzer 0 % (0-5); Neutrophil # 2.39 X10^3/uL (2.7-7.7); Neutrophil % 31.4 % (47-70); POSITIVE MORPHOLOGY YES; Platelet Count 281 K/mm3 (150-450); RBC Distribution Width CV 14.4 % (11.6-14.6); RBC Distribution Width SD 45.9 fl (35.1-43.9); Red Blood Count 4.62 M/mm3 (4.6-6.2); White Blood Count 7.6 K/mm3 (4.4-11.0)
[2024-06-09 16:11] LABS: Atypical Lymphocyte 1+ %; Platelet Estimate ADEQUATE (ADEQ); Red Cell Morphology NORM C+C NORMAL (NORM C&C)
[2024-06-09 16:15] LABS: Differential Comment SCANNED
--- NOTE | 2024-06-09 21:56 | PCM.PN.BLA ---
Progress Note Patient is doing a lot better. He denies any abdominal pain, confusion, nausea and he states that his urine is getting air intelligence specialist. Physical Exam Narrative . Physical exam General: Alert, Oriented x3, Cooperative HEENT: Icterus present atraumatic, PERRLA, EOMI, Normocephalic Oral: No Gingival or Mucosal Lesions/ Ulcerations Neck: Supple, No JVD, Negative Carotid Bruits Chest wall/Lungs: Air entry diminished in bilateral lung bases. No crepitation/rhonchi Cardiovascular: Regular rate, Regular Rhythm, Normal S1, Normal S2, No M/G/R Abdomen: Bowel Sounds Present, Soft, Non-Distended. Liver enlarged and palpable. Nontender : No dysuria. No renal angle tenderness. No suprapubic tenderness. Extremities: No edema, Capillary Refill Less than 3 Seconds Skin: No rashes, No breakdown Musculoskeletal: No bony or muscle tenderness especially in ankle feet and toes . ROM intact Neurological: Cranial nerves II-XII grossly intact, DTR 2+/4. No acute focal neurological deficit. Psych/Mental Status: Normal Affect, Appropriate. Assessment & Plan Assessment/Plan (1) Acetaminophen overdose: (2) Hyperbilirubinemia: (3) Transaminitis: PLAN: Plan The patient is a 34 y/o M w/ PMHx: Gout, Former tobacco use who presents to the [facility] ED on 06/06/24 with history of 3 weeks of significantly worsening gout symptoms with self administration of aggressive rounds of Tylenol primarily for discomfort. He is currently in the ICU for acute liver failure secondary to suspected Tylenol overdose. Acute liver failure ([facility]) is an uncommon, but dramatic, clinical syndrome defined by the onset of coagulopathy (INR > 1.5), and mental status changes within 8 to 26 weeks of presentation . The etiology of [facility] is usually rapidly established by patient history, laboratory tests, and imaging studies, but the etiology remains unknown in up to 20% of cases . Acetaminophen overdose is the most common cause of [facility] in [place] and its incidence appears to be increasing. Fortunately, most acetaminophen overdose patients recover with early N-acetylcysteine (NAC) therapy and supportive care. He was given 3 doses of N-acetylcysteine. Initially he was given as per poison control. He does not drink any alcohol. He did not take any herbal medicines other medicines except for his medicines he was taking prior to coming into the hospital. He had no pre-existing history of liver disease. He has no family history liver disease. He has no autoimmune disease that he knows of. He also denies of any nausea, vomiting or general malaise. His INR has not really increased and he has not decreased his platelet count. His acetaminophen level has always been less than 2. By his nomogram his level was less than 2. His pH does not seem to be affected as he does not have a significant metabolic acidosis along his BMP. He already received IV N-acetylcysteine and did not receive oral acetylcysteine. His [facility] criteria for transplantation eval for very low. Ordered an MRCP after reviewing his CAT scan showing any signs of obstructive disease, lesions, cirrhosis or hemodynamic instability. Recommendations: -Depending on MRCP he may need liver biopsy -Repeat LFTs, liver enzymes, LDH, protein electrophoresis and PT and PTT The patient has very low risk for progressive hepatocellular injury. I think he desponded very well to medical therapy 06/09/2024-patient gives history that is possibly autoimmune based. His LFTs continue to improve. Awaiting viral hepatitis workup along with autoimmune workup. Patient should stay for liver biopsy on Tuesday. If things continue to go well then he can go home after liver biopsy. Visit Charges Inpatient E&M: 91272 Subs Hosp L3
[2024-06-10 03:25] VITALS: BP 127/77; PULSE 87; RESP 16; TEMP 36.7; O2SAT 97
[2024-06-10 05:50] LABS: Absolute Lymphocyte Count 4.53 X10^3/uL (0.83-4.51); Absolute Neutrophil Count 1.8 X10^3/uL (2.0-7.7); Basophil# 0.14 X10^3/uL; Basophil% 1.9 % (0-1); Eosinophil# 0.18 X10^3/uL; Eosinophils% 2.5 % (0-5); Hematocrit 36.5 % (40-54); Hemoglobin 13.1 g/dL (13.0-16.5); Lymphocyte # 4.53 X10^3/ul (0.83-4.51); Lymphocyte % 63.1 % (19-41); Mean Corp Hgb Conc 35.9 g/dL (32-36); Mean Corpuscular Hgb 33.2 pg (27.0-32.0); Mean Corpuscular Volume 92.6 fL (80-94); Mean Platelet Vol. 8.9 fl (6.2-12.0); Monocyte# 0.52 X10^3/uL; Monocyte% 7.2 % (0-10); NRBC Flagged by Analyzer 0 % (0-5); Neutrophil # 1.76 X10^3/uL (2.7-7.7); Neutrophil % 24.6 % (47-70); POSITIVE MORPHOLOGY YES; Platelet Count 323 K/mm3 (150-450); RBC Distribution Width CV 15.8 % (11.6-14.6); RBC Distribution Width SD 45.1 fl (35.1-43.9); Red Blood Count 3.94 M/mm3 (4.6-6.2); White Blood Count 7.2 K/mm3 (4.4-11.0)
[2024-06-10 06:00] VITALS: BMI 28.4
[2024-06-10 06:06] LABS: ALB/GLOB Ratio 0.8 RATIO (0.9-2.4); AST(SGOT) 75 U/L (15-37); Alanine Aminotransfer ALT/SGPT 217 U/L (16-61); Albumin, Serum 2.9 g/dL (3.2-5.0); Alkaline Phosphatase 445 U/L (45-117); Anion Gap 6 (5-15); BUN 11 mg/dL (7-18); BUN/Creat Ratio 14.9 RATIO (10-20); Chloride 106 mmol/L (98-107); Creatinine, Serum 0.74 mg/dL (0.70-1.30); EST Glomerular Filtration Rate 129 mL/min (>60); Est Glom Filt Rate - Afr Amer 156 mL/min (>60); Estimated Creatinine Clearance 153.71 ml/min; Globulin 3.7 g/dL (2.2-4.2); Glucose 106 mg/dL (74-106); Potassium 4.2 mmol/L (3.5-5.1); Protein, Total 6.6 g/dL (6.4-8.2); Sodium Level 140 mmol/L (136-145)
[2024-06-10 06:09] LABS: Differential Indicated SCAN CRITERIA MET
[2024-06-10 07:37] LABS: Reactive Lymphocyte 3+
[2024-06-10 07:38] LABS: Platelet Estimate A (ADEQ); Polychromasia 1+
[2024-06-10 08:07] LABS: GGTP 451 IU/L (0-65)
[2024-06-10 08:15] VITALS: BP 118/77; PULSE 84; RESP 16; TEMP 36.8; O2SAT 95
[2024-06-10] MEDS: Pantoprazole Sodium 40 MG Tablet PO (08:19)
[2024-06-10 08:43] VITALS: O2SAT 95
--- NOTE | 2024-06-10 10:16 | DCINST_ITS ---
Discharge Instructions Diet Discharge Diet: No restrictions DC O2, CPAP, BIPAP needs Home O2 Discharge instructions: No Dressing / Incision Discharge Activity: Return to Normal Activity Weight Bearing Status: Weight bearing as tolerated Dressing / Incision Call your doctor if you observe: Fever of 101 or Higher, Coldness, Increased Pain, Numbness or Tingling, Change in Color, Inability to urinate, Inability to have a bowel movement, Shortness of breath, Dizziness, Fainting spells, Swelling in the ankles, Chest pain, Prolonged hiccupping, Increased palpitations (irregular heartbeat) and Calf discomfort Follow Up Care When: IN 2 WEEKS Test Results: Test results from this visit will be discussed in further detail at your follow- up appointment, if applicable. Discharge Plan Admission Admit Date/Time: 06/06/24 23:53 Primary Reason for Your Visit: Acute liver injury Attending Provider: Antonio Christensen Primary Care Provider: Care Physician,No Primary Consulting Providers: Alice Pope Instructions Additional Instructions / Restrictions: Patient can have light to moderate workup Discharge Orders/Prescriptions Prescriptions: New pantoprazole 40 mg Tablet,Delayed Release (Dr/Ec) 40 mg PO DAILY 30 Days Qty: 30 0RF Referrals / Follow Up: Chencho Garcia DO [Med Staff - Active Staff] - Within 1 Month Care Physician,No Primary [Primary Care Provider] - Disposition Disposition (needs filled in before D/C Order can be placed): Home, Self Care
--- NOTE | 2024-06-10 11:50 | PCM.DC.SUM ---
Providers Date of Admission: 06/06/24 Date of Discharge: 06/10/24 Primary Care Physician: Chloe Primary Care Phys Consultations 06/07/24 00:41 Consult: Gastroenterology Routine Consulting Provider: [facility] Reason for Consult: Tylenol overdose w/ elevated bili/LFTs, accidental EMERGENT Consult: No MD Notified: Yes Date Notified: 06/07/24 Time Notified: 00:19 Method of Notification: Text Reason For Visit: TYLENOL OVERDOSE, ACUTE HYPERBILI/TRANSAMINITIS Diagnosis Discharge Diagnosis (1) Acetaminophen overdose: Status: Acute Code(s): T39.1X1A - Poisoning by 4-Aminophenol derivatives, accidental (unintentional), initial encounter (2) Hyperbilirubinemia: Status: Acute Code(s): E80.6 - Other disorders of bilirubin metabolism (3) Transaminitis: Status: Acute Code(s): R74.01 - Elevation of levels of liver transaminase levels Plan The patient is a 34 y/o M who was admitted with Tylenol overdose about 6 g daily, stopped 2 to 3 days ago before coming to ER. Patient was feeling jaundice/yellow. Patient narrates a different story and states he took 6 g Tylenol every dose about a month ago and was taking 4 tablets of Tylenol daily 2 to 3 days ago #1. Accidental Tylenol overdose with direct hyperbilirubinemia and acute liver injury with possibility of other etiologies including viral hepatitis, autoimmune disease or DILI: Patient is being admitted as PCU status in ICU. On IV NAC drip. Elevated transaminases, alkaline phosphatase. A/G ratio 2.8. Acetaminophen level less than 2. Continue IV fluid. CT abdomen reviewed which shows mild pericholecystic edema/inflammatory changes, small mid segment hypodensity within the spleen concerning for splenic infarct and mild periportal edema. Patient denies history of blood disorder including leukemia or lymphoma. Denies prior history of DVT/PE or thromboembolism. Right upper quadrant sonogram including spleen ordered. U tox was negative. 06/08: Liver ultrasound shows enlarged liver 20.8 cm, diffusely echogenic. CBD 3 mm. GB mild irregular thickening of GB wall suggestive of edema. Pancreas not visualized. Spleen upper limit of normal, 13.3 cm small amount of fluid around perisplenic space. Follow-up labs shows INR 1.0. Electrolytes in normal range. Improvement in TB, DB, transaminases. 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 MRCP is ordered. Tylenol over the almost a month ago therefore should consider other differential including infectious viral hepatitis, autoimmune disease or DILI or idiosyncratic reaction. Total bilirubin, direct bilirubin, AST ALT are improving. 06/10: Total bilirubin decreased to 2.0. Bili direct hyperbilirubinemia. Transaminases improving, AST 75, ALT 217. Alkaline phosphatase 145. Patient advised to avoid taking NSAID or Tylenol or other hepatotoxic medication. Advised to follow-up in GI clinic within a month time. 2. Elevated BP without hypertensive diagnosis: Blood pressure is in normal range. Advised home more ambulatory BP monitoring as an outpatient in consultation with PCP #3. Chronic gout: Noted previously on prednisone, suspect burst treatment has been completed but clarifying to be certain. Patient said he had gout flareup about a month ago, does not have any active or acute joint pain. #5. DVT prophylaxis: Encourage ambulation, activity. Discharge medication reconciliation done. Discharge follow-up instructions completed. Discharge process discussed with the patient and all questions were answered to patient's satisfaction. Follow with PCP in 1 to 2 weeks Total time spent, exact 35 minutes on discharge meds reconciliation, examination, coordination of care with nurses and ancillary staff, review of imaging and blood test and discussion with the patient on follow-up instructions. CT abdomen/pel 1. Mild pericholecystic inflammatory changes/edema concerning for acute cholecystitis. Please correlate. 2. Small wedge-shaped hypodensity within the spleen concerning for splenic infarct. 3. Mild periportal edema. Borderline hepatomegaly. Microbiology Past 72 Hours 06/06/24 21:07 Mucosa - Nose SARS-CoV-2, Influenza & RSV (PCR) - Final Laboratory Results 06/08/24 11:00: Uric Acid 3.8, Iron 71, TIBC 290, Iron Saturation 24.5, Ferritin 2573 H, Lactate Dehydrogenase 541 H, Total Creatine Kinase 37 L, C-React Prot Ext Range 22.10 H 06/08/24 13:50: Atypical Lymphocytes 2+, Platelet Estimate ADEQUATE, RBC Morphology N CHROM, Anisocytosis RARE, Macrocytosis RARE, ESR 9, PT 13.1, INR 1.0, Sodium 136, Potassium 4.2, Chloride 102, Carbon Dioxide 28.0, Anion Gap 6, BUN 8, Creatinine 0.78, Estim Creat Clear Calc 147.34, Est GFR (MDRD) Af Amer 146, Est GFR (MDRD) Non-Af 121, BUN/Creatinine Ratio 10.3, Glucose 139 H, Calcium 9.0, Total Bilirubin 3.90 H 06/08/24 13:50: Total Bilirubin 3.80 H, Direct Bilirubin 2.94 H 06/08/24 13:50: Direct Bilirubin 2.91 H, AST 119 H 06/08/24 13:50: AST 126 H, ALT 306 H 06/08/24 13:50: ALT 304 H, Alkaline Phosphatase 504 H 06/08/24 13:50: Alkaline Phosphatase 521 H, Total Protein 7.1 06/08/24 13:50: Total Protein 6.9, Albumin 2.8 L 06/08/24 13:50: Albumin 2.8 L, Globulin 4.3 H 06/08/24 13:50: Globulin 4.1, Albumin/Globulin Ratio 0.7 L 06/08/24 19:46: Ammonia < 10.0 L, Total Protein (PEP) Pending, Ceruloplasmin Pending, Aldolase Pending, Serum Copper Pending, IgG Pending 06/08/24 19:46: IgG Pending, IgG Total Pending, IgG1 Pending, IgG2 Pending, IgG3 Pending, IgG4 Pending, IgA Pending 06/08/24 19:46: IgA Pending, IgM Pending 06/08/24 19:46: IgM Pending, IgE Pending, Albumin (SAMANTHA) Pending, Albumin/Globulin (SAMANTHA) Pending, [id number] SAMANTHA Pending, [id number] SAMANTHA Pending, Beta-Globulins (SAMANTHA) Pending, Gamma Globulins (SAMANTHA) Pending, SAMANTHA M-Ashish Pending, Anti-Smooth Muscle Ab Pending, CMV IgM Ab Pending, EBV Capsid Ag IgG Ab Pending, EBV Capsid Ag IgM Ab Pending, EBV Nuclear Ag IgG Ab Pending, EBV Antibody Interp Pending, Hepatitis A IgM Ab Pending, Hep Bs Antigen Pending, Hep B Core IgM Ab Pending, Hepatitis C Ab (EIA) Pending, Mycoplasma pneumon IgG Pending, Mycoplasma pneumon IgM Pending, Miscellaneous Test Cancelled 06/09/24 08:30: PT 13.2, INR 1.0, Sodium 137, Potassium 3.9, Chloride 103, Carbon Dioxide 27.0, Anion Gap 7, BUN 7, Creatinine 0.58 L, Estim Creat Clear Calc 197.63, Est GFR (MDRD) Af Amer 204, Est GFR (MDRD) Non-Af 169, BUN/Creatinine Ratio 12.0, Glucose 106, Calcium 8.7, Total Bilirubin 2.70 H, Direct Bilirubin 1.84 H, AST 92 H, ALT 264 H, Alkaline Phosphatase 507 H, Total Protein 6.9, Albumin 2.8 L, Globulin 4.1, Albumin/Globulin Ratio 0.7 L Medications at Discharge Home Medications pantoprazole 40 mg tablet,delayed release 40 mg PO DAILY 30 days #30 tabs 06/10/24 Physical Exam Narrative Seen and examined No acute issues overnight. Liver numbers are improving. Patient did not have abdominal pain or any new symptoms. Physical exam General: Alert, Oriented x3, Cooperative HEENT: Mild icterus present but improving atraumatic, PERRLA, EOMI, Normocephalic Oral: No Gingival or Mucosal Lesions/ Ulcerations Neck: Supple, No JVD, Negative Carotid Bruits Chest wall/Lungs: Air entry diminished in bilateral lung bases. No crepitation/rhonchi Cardiovascular: Regular rate, Regular Rhythm, Normal S1, Normal S2, No M/G/R Abdomen: Bowel Sounds Present, Soft, Non-Distended. Liver enlarged and palpable. Nontender : No dysuria. No renal angle tenderness. No suprapubic tenderness. Extremities: No edema, Capillary Refill Less than 3 Seconds Skin: No rashes, No breakdown Musculoskeletal: No bony or muscle tenderness especially in ankle feet and toes . ROM intact Neurological: Cranial nerves II-XII grossly intact, DTR 2+/4. No acute focal neurological deficit. Psych/Mental Status: Normal Affect, Appropriate. Weight / BMI Weight Weight: 192 lb 0.362 oz Body Mass Index (BMI) 28.4 ABG / Lab / Microbiology Data 06/10/24 05:04 06/10/24 05:04 Laboratory: Laboratory Results - last 24 hr 06/08/24 13:50: GGT 451 H 06/08/24 19:46: Miscellaneous Test Cancelled 06/08/24 19:46: Miscellaneous Test Cancelled 06/09/24 08:30: WBC 7.6, RBC 4.62, Hgb 13.8, Hct 40.5, MCV 87.7, MCH 29.9, MCHC 34.1, RDW Std Deviation 45.9 H, RDW Coeff of Page 14.4, Plt Count 281, MPV 9.7, Immature Gran % (Auto) 0.800, Neut % (Auto) 31.4 L, Lymph % (Auto) 58.5 H, [place] % (Auto) 6.6, Eos % (Auto) 1.0, Baso % (Auto) 1.7 H, Absolute Neuts (auto) 2.4, Absolute Lymphs (auto) 4.46, Nucleated RBC % 0, Differential Comment SCANNED, Atypical Lymphocytes 1+, Platelet Estimate ADEQUATE, RBC Morphology NORM C+C 06/10/24 05:04: WBC 7.2, RBC 3.94 L, Hgb 13.1, Hct 36.5 L, MCV 92.6 D, MCH 33.2 H, MCHC 35.9 D, RDW Std Deviation 45.1 H, RDW Coeff of Page 15.8 H, Plt Count 323, MPV 8.9, Immature Gran % (Auto) 0.700, Neut % (Auto) 24.6 L, Lymph % (Auto) 63.1 H, [place] % (Auto) 7.2, Eos % (Auto) 2.5, Baso % (Auto) 1.9 H, Absolute Neuts (auto) 1.8 L, Absolute Lymphs (auto) 4.53 H, Nucleated RBC % 0, Diff Path Review August, Reactive Lymphocytes 3+, Platelet Estimate A, Polychromasia 1+, Sodium 140, Potassium 4.2, Chloride 106, Carbon Dioxide 28.0, Anion Gap 6, BUN 11, Creatinine 0.74, Estim Creat Clear Calc 153.71, Est GFR (MDRD) Af Amer 156, Est GFR (MDRD) Non-Af 129, BUN/Creatinine Ratio 14.9, Glucose 106, Calcium 9.0, Total Bilirubin 2.00 H, AST 75 H, ALT 217 H, Alkaline Phosphatase 445 H, Total Protein 6.6, Albumin 2.9 L, Globulin 3.7, Albumin/Globulin Ratio 0.8 L Microbiology: Microbiology 06/06/24 21:07 Mucosa - Nose SARS-CoV-2, Influenza & RSV (PCR) - Final D/C Instructions Discharge Diet: No restrictions Weight Bearing Status: Weight bearing as tolerated Call your doctor if you observe: Fever of 101 or Higher, Coldness, Increased Pain, Numbness or Tingling, Change in Color, Inability to urinate, Inability to have a bowel movement, Shortness of breath, Dizziness, Fainting spells, Swelling in the ankles, Chest pain, Prolonged hiccupping, Increased palpitations (irregular heartbeat) and Calf discomfort DC O2, CPAP, BIPAP Needs Home O2 Discharge instructions: No When: IN 2 WEEKS Meaningful Use Info Meaningful Use Meaningful Use Diagnoses (Choose all that apply): None applicable Ischemic Stroke Statin Dosing Therapy Reference: STATIN DOSE THERAPY REFERENCE: * Patients > 75 years receive moderate or high dose statin therapy. * Patients 75 years or YOUNGER should receive HIGH intensity statin dose unless contraindicated. You will be required to document reason for non-treatment if statin daily dose does not meet guidelines. HIGH DOSE STATIN THERAPY DAILY Atorvastatin > than or = to 40 mg Rosuvastatin > than or = to 20 mg Amlodipine + Atorvastatin > than or = to 2.5/40 mg Ezetimibe + Simvastatin 10/80 mg Simvastatin 80mg Discharge Plan Admission Admit Date/Time: 06/06/24 23:53 Primary Reason for Your Visit: Acute liver injury Attending Provider: Antonio Christensen Primary Care Provider: Care Physician,No Primary Consulting Providers: Alice Pope Instructions Additional Instructions / Restrictions: Patient can have light to moderate workup Discharge Orders/Prescriptions Prescriptions: New pantoprazole 40 mg Tablet,Delayed Release (Dr/Ec) 40 mg PO DAILY 30 Days Qty: 30 0RF Referrals / Follow Up: Chencho Garcia DO [Med Staff - Active Staff] - Within 1 Month Care Physician,No Primary [Primary Care Provider] - Disposition Disposition (needs filled in before D/C Order can be placed): Home, Self Care Charges/Coding Visit Charges Inpatient E&M: 08245 Disch Hosp >30min
[2024-06-11 14:07] LABS: Pathologist Review Reviewed
[2024-06-11 16:09] LABS: IgG, Quant 1029 mg/dL (603-1613); Immunoglobulin G, Subclass 1 655 mg/dL (248-810); Immunoglobulin G, Subclass 2 234 mg/dL (130-555); Immunoglobulin G, Subclass 3 43 mg/dL (15-102); Immunoglobulin G, Subclass 4 19 mg/dL (2-96); Mycoplasma Pneum AB IgG 373 U/mL (0-99); Mycoplasma pneum. AB IgM < 770 U/mL (0-769)
== END 2024-06-10 12:48 | disposition home or self-care (01) | DRG 918 ==
LOC: ED 23:32 → ICU 06-07 02:25 → PCU 06-09 19:38
PROVIDERS: Internal Medicine Gastroenterology; Admitting Provider Family Medicine; Emergency Provider Emergency Medicine; Visit Provider Internal Medicine
DX: T39.1X1A Poisoning by 4-Aminophenol derivatives, accidental (unintentional), initial encounter (principal); E80.6 Other disorders of bilirubin metabolism; M1A.9XX0 Chronic gout, unspecified, without tophus (tophi); Z87.891 Personal history of nicotine dependence; R74.01 Elevation of levels of liver transaminase levels; R03.0 Elevated blood-pressure reading, without diagnosis of hypertension
CPT/HCPCS: 36415; 74177; 74181; 76705; 80048; 80053; 80074; 80076; 80143; 80307; 81001; 82085; 82140; 82248; 82390; 82525; 82550; 82728; 82784; 82785; 82787; 82977; 83516; 83540; 83550; 83605; 83615; 83690; 84120; 84165; 84550; 85025; 85610; 85652; 85730; 86140; 86334; 86645; 86664; 86665; 86738; 87631; 94668; 94762; 97802; 99285; Q9967; A4216

== ENCOUNTER → 2024-06-27 | Outpatient (CLI) | payer OTHER, SELFPAY ==
[2024-06-27 09:33] LABS: Erythrocyte Sedimentation Rate 1 mm/hr (0-20)
[2024-06-27 09:34] LABS: Absolute Lymphocyte Count 1.19 X10^3/uL (0.83-4.51); Absolute Neutrophil Count 2.2 X10^3/uL (2.0-7.7); Basophil# 0.04 X10^3/uL; Eosinophil# 0.08 X10^3/uL; Hematocrit 40.8 % (40-54); Hemoglobin 14.6 g/dL (13.0-16.5); Lymphocyte # 1.19 X10^3/ul (0.83-4.51); Lymphocyte % 30.3 % (19-41); Mean Corp Hgb Conc 35.8 g/dL (32-36); Mean Corpuscular Hgb 30.4 pg (27.0-32.0); Mean Corpuscular Volume 84.8 fL (80-94); Mean Platelet Vol. 8.5 fl (6.2-12.0); Monocyte# 0.45 X10^3/uL; Monocyte% 11.5 % (0-10); NRBC Flagged by Analyzer 0 % (0-5); Neutrophil # 2.16 X10^3/uL (2.7-7.7); Neutrophil % 54.9 % (47-70); Platelet Count 273 K/mm3 (150-450); RBC Distribution Width CV 13.4 % (11.6-14.6); RBC Distribution Width SD 41.8 fl (35.1-43.9); Red Blood Count 4.81 M/mm3 (4.6-6.2); White Blood Count 3.9 K/mm3 (4.4-11.0)
[2024-06-27 10:12] LABS: ALB/GLOB Ratio 1.8 RATIO (0.9-2.4); AST(SGOT) 38 U/L (<=37); Alanine Aminotransfer ALT/SGPT 69 U/L (<=46); Albumin, Serum 4.4 g/dL (3.5-5.0); Alkaline Phosphatase 146 U/L (40-129); Anion Gap 11 (5-15); BUN 10 mg/dL (4-19); BUN/Creat Ratio 12.4 RATIO (10-20); Calcium,Total 9.3 mg/dL (7.6-11.0); Carbon Dioxide 25.7 mmol/L (21.0-32.0); Chloride 103 mmol/L (98-108); Cholesterol 215 mg/dL (<=200); Creatinine, Serum 0.78 mg/dL (0.70-1.20); EST Glomerular Filtration Rate 120 (>60); Ferritin 996 ng/mL (37-417); Globulin 2.4 g/dL (2.2-4.2); Glucose 98 mg/dL (70-99); High Density Lipoprotein 38 mg/dL; Low Density Lipoprotein Calc. 139 mg/dL; Potassium 3.9 mmol/L (3.3-5.1); Protein, Total 6.9 g/dL (5.9-8.4); Sodium Level 139 mmol/L (133-145); Total Bilirubin 1.54 mg/dL (0.00-1.30); Triglycerides 189 mg/dL; Very Low Density Lipoprotein 38 mg/dL (5-40); cholesterol:hdl ratio screen 5.67
[2024-06-27 11:29] LABS: Iron Binding Capacity,Total 252 ug/dL (250-450)
[2024-06-27 11:34] LABS: CRP < 3.00 mg/L (0.0-3.0); Iron 126 ug/dL (65-175); Iron Binding Capacity,Unsat 126 ug/dL (228-428); LDH 229 U/L (87-241); Uric Acid 6.3 mg/dL (3.5-7.2)
[2024-06-28 15:08] LABS: Anti-Mitochondrial AB <20.0 Units (0.0-20.0)
[2024-06-30 01:06] LABS: Albumin 3.7 g/dL (2.9-4.4); Alpha-1-Globulins 0.2 g/dL (0.0-0.4); Alpha-2-Globulins 0.7 g/dL (0.4-1.0); Angiotensin Convert Enzyme 76 U/L (14-82); Ceruloplasmin 27.7 mg/dL (16.0-31.0); Copper, Serum or Plasma 118 ug/dL (69-132); Cytoplasmic Ab (C-ANCA) <1:20 titer (Neg:<1:20); Haptoglobin 112 mg/dL (17-317); IMMUNOFIXATION RESULT,S Comment: (.); Immunoglobulin A 86 mg/dL (90-386); Immunoglobulin G 834 mg/dL (603-1613); Immunoglobulin M 227 mg/dL (20-172); PROEL- TOTAL PROTEIN 6.6 g/dL (6.0-8.5); Perinuclear Ab (P-ANCA) <1:20 titer (Neg:<1:20)
== END | disposition home or self-care (01) ==
PROVIDERS: Referring Provider Internal Medicine Gastroenterology; Visit Provider Internal Medicine Gastroenterology
DX: K75.9 Inflammatory liver disease, unspecified (principal); E80.6 Other disorders of bilirubin metabolism; R74.01 Elevation of levels of liver transaminase levels
CPT/HCPCS: 36415; 80053; 80061; 82164; 82390; 82525; 82728; 82784; 83010; 83516; 83540; 83550; 83615; 84165; 84550; 85025; 85610; 85652; 86037; 86140; 86334

== ENCOUNTER → 2024-07-04 | Outpatient (CLI) | payer OTHER, SELFPAY ==
[2024-07-03 16:43] LABS: Platelet Count 221 K/mm3 (150-450)
[2024-07-03 17:02] LABS: Prothrombin Time (Protime)PT. 13.3 SECONDS (11.7-14.9)
[2024-07-03 17:07] LABS: Partial Thromboplast Time 27.1 Seconds (24.1-36.2)
[2024-07-04] VITALS (13 sets, daily range): BP systolic 98–117; BP diastolic 64–82; PULSE 74–84; RESP 12–16; TEMP 36.2; O2SAT 94–99; BMI 28.0
--- NOTE | 2024-07-04 10:20 | CT_ITS ---
PROCEDURE: BIOPSY/INJ OR NEEDLE PLACEMENT. Liver biopsy. REASON FOR EXAM: ELEVATED LFTS TECHNIQUE: The procedure as well as the benefits and possible complications including bleeding and infection were explained to the patient. Informed consent was obtained. The patient was placed in the supine position. The overlying skin was prepped and draped in usual sterile fashion. Conscious sedation was performed. The patient received 2 mg of Versed and 75 mcg of fentanyl intravenously. Conscious sedation was started at 10:22 a.m. and terminated at 10:40 a.m.. The patient was independently monitored by the department nurse. Using a 18 gauge core biopsy needle system, 4 core biopsies of the right lobe of the liver were performed. The specimen was transferred to the lab for evaluation. The patient tolerated the procedure well. COMPARISON: None. FINDINGS: Successful CT-guided core biopsies of the right lobe of the liver. CT/Biopsy/Inj or Needle Placement IMPRESSION: Successful CT-guided core biopsies of the liver as described with an 18 gauge c ore biopsy needle system. Conscious sedation protocol was followed. The patient tolerated the procedure well. No immediate complications noted. One or more dose reduction techniques were used (e.g., Automated exposure contr ol, adjustment of the mA and/or kV according to patient size, use of iterative reconstruction technique). Reading Location: [place] [id number]
[2024-07-04] MEDS: Midazolam 2 MG/2 ML Syringe IV ×2 (10:22→10:30)
[2024-07-04] MEDS: fentaNYL 100 MCG/2 ML Ampul IV ×2 (10:23→10:36)
[2024-07-04] MEDS: Lidocaine 2% (20 ml mdv) 20 ML Vial INFILT (10:37)
== END | disposition home or self-care (01) ==
PROVIDERS: Referring Provider Internal Medicine Gastroenterology; Visit Provider Internal Medicine Gastroenterology
DX: K75.9 Inflammatory liver disease, unspecified (principal)
CPT/HCPCS: 47000; 36415; 77012; 85049; 85610; 85730; 99156; A4216

== ENCOUNTER → 2024-09-17 | Outpatient (CLI) | payer OTHER, SELFPAY ==
[2024-09-17 15:51] LABS: International Normalized Ratio 0.9; Prothrombin Time (Protime)PT. 12.8 SECONDS (11.7-14.9)
[2024-09-17 16:14] LABS: CRP 3.61 mg/L (0.0-3.0)
[2024-09-17 16:21] LABS: ALB/GLOB Ratio 2.1 RATIO (0.9-2.4); AST(SGOT) 23 U/L (<=37); Alanine Aminotransfer ALT/SGPT 28 U/L (<=46); Albumin, Serum 4.8 g/dL (3.5-5.0); Alkaline Phosphatase 81 U/L (40-129); Anion Gap 14 (5-15); BUN 18 mg/dL (4-19); BUN/Creat Ratio 24.7 RATIO (10-20); Calcium,Total 9.7 mg/dL (7.6-11.0); Carbon Dioxide 23.4 mmol/L (21.0-32.0); Chloride 101 mmol/L (98-108); Creatinine, Serum 0.74 mg/dL (0.70-1.20); EST Glomerular Filtration Rate 122 (>60); Globulin 2.3 g/dL (2.2-4.2); Glucose 96 mg/dL (70-99); Protein, Total 7.1 g/dL (5.9-8.4); Sodium Level 138 mmol/L (133-145); Total Bilirubin 0.79 mg/dL (0.00-1.30)
[2024-09-17 16:25] LABS: Erythrocyte Sedimentation Rate 3 mm/hr (0-20)
[2024-09-19 16:09] LABS: CMV Antibody IgG < 0.60 U/mL (0.00-0.59); EBV Acute VCA IgM > 160.0 U/mL (0.0-35.9); EBV Nuclear Antigen IgG < 18.0 U/mL (0.0-17.9)
== END | disposition home or self-care (01) ==
LOC: LAB 14:50
PROVIDERS: Referring Provider Internal Medicine Gastroenterology; Visit Provider Internal Medicine Gastroenterology
DX: R74.01 Elevation of levels of liver transaminase levels (principal)
CPT/HCPCS: 36415; 80053; 85610; 85652; 86140; 86644; 86663; 86664; 86665